=== PATIENT | male | born 1990 | race African-American/Black ===

== ENCOUNTER → 2021-10-29 14:25 | Outpatient (BNVA) | payer OTHER, SELFPAY | PROVIDERS: PCP Internal Medicine; Visit Provider Nurse Practitioner Family | DX: G47.33 Obstructive sleep apnea (adult) (pediatric) (principal); F81.9 Developmental disorder of scholastic skills, unspecified | CPT/HCPCS: 99212 ==

== ENCOUNTER → 2022-01-28 14:26 | Outpatient (BNVA) | payer OTHER, SELFPAY | PROVIDERS: PCP Internal Medicine; Visit Provider Nurse Practitioner Family | DX: G47.33 Obstructive sleep apnea (adult) (pediatric) (principal); F81.9 Developmental disorder of scholastic skills, unspecified | CPT/HCPCS: 99212 ==

== ENCOUNTER → 2022-07-25 13:50 | Outpatient (BNVA) | payer OTHER, SELFPAY | PROVIDERS: PCP Internal Medicine; Visit Provider Nurse Practitioner Family | DX: G47.33 Obstructive sleep apnea (adult) (pediatric) (principal); F81.9 Developmental disorder of scholastic skills, unspecified | CPT/HCPCS: 99212 ==

== ENCOUNTER 2023-06-27 14:57 | Outpatient (AMB) | payer OTHER, SELFPAY ==
--- NOTE | 2023-06-27 15:02 | MHC.OFFVIS ---
Intake Vital Signs 06/27/23 15:07 Height 5 ft 9 in Weight 386 lb BMI 57.0 Intake Visit Reasons: 6m sleep apnea - LVM Intake Note: patient presents for follow up sleep apnea. Patient states Im here for follow up I'm just having issues with the machine, it's not regestering Allergies codeine Allergy (Unknown, Uncoded 06/27/23 15:08) Unknown doxycycline Allergy (Unknown, Uncoded 06/27/23 15:08) Unknown erythromycin Allergy (Unknown, Uncoded 06/27/23 15:08) Unknown phenergan plain Allergy (Unknown, Uncoded 06/27/23 15:08) Unknown promethazine Allergy (Unknown, Uncoded 06/27/23 15:08) Unknown HPI HPI Comments History of Present Illness Details 32-yr-old male presents for f/u visit. Pt denies any significant interval medical changes. He states he is sleeping well with his CPAP, using it nightly > 7-8 hrs. The machine is still making a lot of noise. Pt's CPAP machine is no longer transmitting data. He has a new SD card but it is no longer recording PFSH Surgical History H/O removal of cyst Family History Father No problems noted. Mother Diabetes Social History Alcohol intake: never Patient Tobacco Use Status: Never used Tobacco Review of Systems Const All systems reviewed & are unremarkable except as noted in HPI and below Physical Exam Vital Signs: BMI result Body Mass Index 57.0 Const General: cooperative and no acute distress Orientation/consciousness: patient oriented x3 HEENT Head: Yes normocephalic Resp Effort & Inspection: normal respiratory effort and able to speak in complete sentences Neuro General: patient oriented x3, gait normal and CN's II-XI intact bilaterally Cognition (Neuro): normal cognition Motor exam (neuro): 5/5 motor strength present throughout Psych Appearance: grossly normal Mental Status: mental status grossly normal Speech and movement: Normal speech and movement present Affect: normal affect Attitude: cooperative Assessment & Plan Assessment & Plan (1) Obstructive sleep apnea syndrome, severe: Code(s): G47.33 - Obstructive sleep apnea (adult) (pediatric) (2) Cognitive developmental delay: Code(s): F81.9 - Developmental disorder of scholastic skills, unspecified Plan Continue APAP 12-16 cmH2O nightly > 4 hours, as pt continues to have good clinical effect with use. Clean CPAP machine and supplies routinely. Change CPAP supplies routinely. Continue healthy diet and increased physical activity such as walking. Pt to contact us or respiratory company with any questions or concerns. Coding Level of Care Code Est Pt Level 3 (73186) Diagnoses Obstructive sleep apnea syndrome, severe G47.33 Cognitive developmental delay F81.9
[2023-06-27 15:07] VITALS: BMI 57.0
== END 2023-06-27 15:32 | disposition home or self-care (01) ==
PROVIDERS: Visit Provider Nurse Practitioner Family
DX: G47.33 Obstructive sleep apnea (adult) (pediatric) (principal); F81.9 Developmental disorder of scholastic skills, unspecified
CPT/HCPCS: 99213

== ENCOUNTER → 2023-06-27 14:57 | Outpatient (BNVA) | payer OTHER, SELFPAY | PROVIDERS: Visit Provider Nurse Practitioner Family | DX: G47.33 Obstructive sleep apnea (adult) (pediatric) (principal); F81.9 Developmental disorder of scholastic skills, unspecified | CPT/HCPCS: 99212 ==

== ENCOUNTER 2023-12-19 14:00 | Outpatient (AMB) | payer OTHER, SELFPAY ==
--- NOTE | 2023-12-19 14:01 | MHC.OFFVIS ---
Intake Vital Signs 12/19/23 14:02 Height 5 ft 9 in Weight 381 lb BMI 56.3 Pulse 92 Pulse Source Pulse Oximeter Pulse Oximetry (%) 98 Oxygen Delivery Method Room Air Intake Visit Reasons: 6m sleep apnea-LVM Intake Note: Patient presents for 6 month follow up apnea. Allergies codeine Allergy (Unknown, Uncoded 12/19/23 14:04) Unknown doxycycline Allergy (Unknown, Uncoded 12/19/23 14:04) Unknown erythromycin Allergy (Unknown, Uncoded 12/19/23 14:04) Unknown phenergan plain Allergy (Unknown, Uncoded 12/19/23 14:04) Unknown promethazine Allergy (Unknown, Uncoded 12/19/23 14:04) Unknown HPI HPI Comments History of Present Illness Details 33-yr-old male presents for follow-up visit for LUCIO. He states he is sleeping well with his CPAP, using it most nights > 7-8 hrs. His current machine is making loud noises and no longer transmits compliance data. [facility] Surgical History H/O removal of cyst Family History Father No problems noted. Mother Diabetes Social History Alcohol intake: never Patient Tobacco Use Status: Never used Tobacco Review of Systems Const All systems reviewed & are unremarkable except as noted in HPI and below Physical Exam Vital Signs: Last Vital Signs Pulse 92 12/19/23 14:02 Pulse Ox 98 12/19/23 14:02 Oxygen Delivery Method Room Air 12/19/23 14:02 BMI result Body Mass Index 56.3 Const General: cooperative and no acute distress Orientation/consciousness: patient oriented x3 Resp Effort & Inspection: normal respiratory effort and able to speak in complete sentences Neuro General: patient oriented x3 Cranial nerves: Yes CN's II-XII intact bilaterally Cognition (Neuro): normal cognition Psych Appearance: grossly normal Mental Status: mental status grossly normal Speech and movement: Normal speech and movement present Affect: normal affect Attitude: cooperative Results Reviewed Results Reviewed: PAP compliance report- see HPI Assessment & Plan Assessment & Plan (1) Obstructive sleep apnea syndrome, severe: Code(s): G47.33 - Obstructive sleep apnea (adult) (pediatric) (2) Cognitive developmental delay: Code(s): F81.9 - Developmental disorder of scholastic skills, unspecified Plan Will request new APAP machine w/ remote monitoring capabilities as current machine is making loud noises and no longer transmits compliance data. Continue APAP 10-14 cmH2O nightly > 4 hours, as pt continues to have good clinical effect with use. Clean CPAP machine and supplies routinely. Change CPAP supplies routinely. Continue healthy diet and increased physical activity such as walking. Pt to contact us or respiratory company with any questions or concerns. Coding Level of Care Code Est Pt Level 3 (75781) Diagnoses Obstructive sleep apnea syndrome, severe G47.33 Cognitive developmental delay F81.9
[2023-12-19 14:02] VITALS: PULSE 92; O2SAT 98; BMI 56.3
== END 2023-12-19 14:49 | disposition home or self-care (01) ==
PROVIDERS: PCP Internal Medicine; Visit Provider Nurse Practitioner Family
DX: G47.33 Obstructive sleep apnea (adult) (pediatric) (principal); F81.9 Developmental disorder of scholastic skills, unspecified
CPT/HCPCS: 99213

== ENCOUNTER → 2023-12-19 14:00 | Outpatient (BNVA) | payer OTHER, SELFPAY | PROVIDERS: PCP Internal Medicine; Visit Provider Nurse Practitioner Family | DX: G47.33 Obstructive sleep apnea (adult) (pediatric) (principal); F81.9 Developmental disorder of scholastic skills, unspecified | CPT/HCPCS: 99212 ==

== ENCOUNTER 2024-05-27 11:37 | Outpatient (AMB) | payer OTHER, SELFPAY ==
--- NOTE | 2024-05-27 11:43 | A.OFFVIS_ITS ---
Vital Signs 05/27/24 11:45 Height 5 ft 9 in Weight 374 lb BMI 55.2 Intake Visit Reasons: 6m sleep apnea-CONF Intake Note: Patient presents for 6 month follow up Allergies codeine Allergy (Unknown, Uncoded 05/27/24 11:45) Unknown doxycycline Allergy (Unknown, Uncoded 05/27/24 11:45) Unknown erythromycin Allergy (Unknown, Uncoded 05/27/24 11:45) Unknown phenergan plain Allergy (Unknown, Uncoded 05/27/24 11:45) Unknown promethazine Allergy (Unknown, Uncoded 05/27/24 11:45) Unknown HPI Comments Details: 33-yr-old male presents for follow-up visit of sleep apnea. Pt denies any significant interval medical history changes. Pt reports that he is using his CPAP most nights- states sometimes his machine does not transmit data as the [employer] bars are not available. Pt states he is not eligible for a new CPAP machine until at least [id number]. He is sleeping well w/ CPAP. Current compliance report has pt's name nickolas. [facility]LY [facility] Surgical History H/O removal of cyst Family History Father No problems noted. Mother Diabetes Social History Alcohol intake: never Patient Tobacco Use Status: Never used Tobacco Review of Systems Const All systems reviewed & are unremarkable except as noted in HPI and below Physical Exam Vital Signs: BMI result Body Mass Index 55.2 Const General: no acute distress Orientation/consciousness: patient oriented x3 HEENT Other: Mallampati stage Resp Effort & Inspection: normal respiratory effort and able to speak in complete sentences Auscultation: clear to auscultation bilaterally Neuro General: patient oriented x3 Psych Mental Status: mental status grossly normal Speech and movement: Clear speech present Attitude: cooperative Results Reviewed Results Reviewed: PAP compliance report- see HPI Assessment & Plan Assessment & Plan (1) Obstructive sleep apnea syndrome, severe: Code(s): G47.33 - Obstructive sleep apnea (adult) (pediatric) Category: Medical (2) Cognitive developmental delay: Code(s): F81.9 - Developmental disorder of scholastic skills, unspecified Category: Medical Plan Pt asks that we request the wifi setting on his machine be updated to one w/ stronger bandwidth- we will contact taylor sandhu. Pt's name is not splled correctly on his PAP complince report- will request this be fixed. Continue APAP 10-14 cmH2O nightly > 4 hours, as pt continues to have good clinical effect with use. Clean CPAP machine and supplies routinely. Change CPAP supplies routinely. Continue healthy diet and increased physical activity such as walking. Pt to contact us or respiratory company with any questions or concerns. Coding Level of Care Code Est Pt Level 3 (69550) Diagnoses Obstructive sleep apnea syndrome, severe G47.33 Cognitive developmental delay F81.9
[2024-05-27 11:45] VITALS: BMI 55.2
== END 2024-05-27 12:20 | disposition home or self-care (01) ==
PROVIDERS: PCP Internal Medicine; Visit Provider Nurse Practitioner Family
DX: G47.33 Obstructive sleep apnea (adult) (pediatric) (principal); F81.9 Developmental disorder of scholastic skills, unspecified
CPT/HCPCS: 99213

== ENCOUNTER → 2024-05-27 11:37 | Outpatient (BNVA) | payer OTHER, SELFPAY | PROVIDERS: PCP Internal Medicine; Visit Provider Nurse Practitioner Family | DX: G47.33 Obstructive sleep apnea (adult) (pediatric) (principal); Z99.89 Dependence on other enabling machines and devices | CPT/HCPCS: 99212 ==

== ENCOUNTER 2024-12-16 11:12 | Outpatient (AMB) | payer OTHER, SELFPAY ==
--- NOTE | 2024-12-16 11:27 | MHC.OFFVIS ---
Vital Signs 12/16/24 11:28 Height 5 ft 9 in Weight 380 lb BMI 56.1 BP 140/80 H Blood Pressure Location Lt brachial Position Sitting Pulse 81 Pulse Source Pulse Oximeter Pulse Oximetry (%) 96 Oxygen Delivery Method Room Air Intake Visit Reasons: 7mo F/U Intake Note: Patient presents follow up LUCIO. Compliance in chart [employer] Manager Required: No Accompanied by: Self / Same As Patient Allergies codeine Allergy (Unknown, Uncoded 12/16/24 11:30) Unknown doxycycline Allergy (Unknown, Uncoded 12/16/24 11:30) Unknown erythromycin Allergy (Unknown, Uncoded 12/16/24 11:30) Unknown phenergan plain Allergy (Unknown, Uncoded 12/16/24 11:30) Unknown promethazine Allergy (Unknown, Uncoded 12/16/24 11:30) Unknown Medication List - Last Reconciled 12/16/24 by ASHLEY Sifuentes adalimumab (Humira(CF) Pen) 40 mg subcut QWEEK adalimumab (Humira Pen) 40 mg subcut QWEEK amlodipine 5 mg PO DAILY aspirin (Adult Low Dose Aspirin) 81 mg PO DAILY dulaglutide (Trulicity) 3 mg subcut QWEEK empagliflozin (Jardiance) 10 mg PO QAM fluticasone propionate 50 mcg/actuation (Flonase Allergy Relief) 1 spray intranasal DAILY furosemide (Lasix) 20 mg PO DAILY ibuprofen 400 mg PO .prn lisinopril 30 mg PO DAILY loratadine (Claritin) 10 mg PO DAILY metformin 1,000 mg PO BID mometasone 0.1% 1 appl topical DAILY nystatin 10,000,000 units PO .qd omeprazole 40 mg PO DAILY spironolacton-hydrochlorothiaz 25-25 mg 1 tab PO DAILY spironolactone 25 mg PO DAILY HPI Comments Details: The patient is a 34-year-old male presenting with a follow-up for sleep apnea. - My review of current CPAP compliance data indicates usage at 71% overall, with 70% of nights having usage greater than 4 hours since September 10, 2024. - Average daily usage on days used was 7 hours and 31 minutes. - Residual Apnea-Hypopnea Index recorded at 1.4 per hour. - The current PAP setting is APAP 10 to 14 cm H2O with EPR at 1. The patient noted the machine emitting excessive air noise during use. - The patient reports nasal congestion primarily at night, potentially affecting sleep quality and exacerbating noise perception from the CPAP machine. - The current CPAP machine is eligible for replacement in September 2027, but ongoing maintenance is well-maintained with the regular use of distilled water and cleaning. PAP compliance review: Does patient have sufficient PAP supplies? Yes Does patient clean PAP supplies on a regular basis? Yes Does the patient use distilled water in their PAP machine water reservoir? Yes PAP compliance report reviewed. Compliance report date range: September 10 2024 through December 08 2024 Overall usage: 71 percent Usage greater than 4 hours: 70 percent PAP setting: APAP 10 to 14 cmH2O with EPR 1 Average usage on days used: 7 hours and 31 minutes Average mask leakage: 0 L/min Residual AHI: 1.4 per hour PFSH Surgical History H/O removal of cyst Family History Father No problems noted. Mother Diabetes Social History Alcohol intake: never Patient Tobacco Use Status: Never used Tobacco Physical Exam Vital Signs: Last Vital Signs Pulse 81 12/16/24 11:28 BP 140/80 H 12/16/24 11:28 Pulse Ox 96 12/16/24 11:28 Oxygen Delivery Method Room Air 12/16/24 11:28 BMI result Body Mass Index 56.1 Const General: no acute distress Orientation/consciousness: patient oriented x3 Resp Effort & Inspection: normal respiratory effort and able to speak in complete sentences Auscultation: clear to auscultation bilaterally Neuro General: patient oriented x3 Psych Mental Status: mental status grossly normal Speech and movement: Clear speech present Attitude: cooperative Assessment & Plan Assessment & Plan (1) Obstructive sleep apnea syndrome, severe: Code(s): G47.33 - Obstructive sleep apnea (adult) (pediatric) Category: Medical (2) Cognitive developmental delay: Code(s): F81.9 - Developmental disorder of scholastic skills, unspecified Category: Medical (3) Nasal congestion: Code(s): R09.81 - Nasal congestion Category: Medical Plan Discussion Notes During this session, I reviewed the patient's CPAP compliance with him, noting an improvement and consistency in use. The patient?s compliance data are commendable, meeting compliance and efficacy parameters. However, we discussed his concerns regarding the noise emitted by the CPAP machine, potentially affecting his sleep quality. He identified nasal congestion as an additional issue, addressed with regular use of Flonase and systemic allergy management before retiring to bed. The discussion around future machine replacement timelines was clarified, with a recommendation for reevaluation in September 2027.Advised by seem to trial Azelastine 137 mcg nasal spray, 2 sprays into each nostril daily at bedtime. Provided guidance on nasal spray application methods for optimizing treatment outcomes and alleviating congestion symptoms. My suggestions included potential modification options for EPR settings to enhance comfort. We reviewed tracking metrics for continued management, and I detailed resources for optimally maintaining equipment function. Patient was informed and verbally consented to the use of an ambient scribe for clinic note documentation during this visit. Plan - Continue APAP 10-14 cmH2O nightly > 4 hours, as pt continues to have good clinical effect with use. - However adjusted EPR from 1 to 3 (via [employer] portal) in hopes this improves PAP tolerance in decreases - Trial Azelastine 137 mcg nasal spray, 2 sprays into each nostril daily at bedtime - Clean and change PAP supplies routinely, including filters, masks, tubing, and water reservoir. - Use distilled water in PAP water reservoir. - Continue healthy diet and increased physical activity such as walking. - Pt to contact us or respiratory company with any questions or concerns. Medications: New azelastine administer into each nostril x's 2 2 sprays intranasal BEDTIME 30 mL 6RF 30 days Coding Level of Care Code Est Pt Level 4 (88775) Diagnoses Obstructive sleep apnea syndrome, severe G47.33 Cognitive developmental delay F81.9 Nasal congestion R09.81
[2024-12-16 11:28] VITALS: BP 140/80; PULSE 81; O2SAT 96; BMI 56.1
--- OUTSIDE RECORDS SUMMARY | 2024-12-16 12:46 | XMS_ITS | Clinical Summary ---
Author Organization [facility] Address [address] [facility] [address] [place] [address] Phone Care Team Providers Care Pediatric Psychologist Name Role Phone Timothy Santiago Primary Care Provider [phone] Allergies Active Allergy Reactions Criticality Noted Date Comments Codeine Other (see comments) 09/19/2016 Reaction not mentioned Doxycycline Nausea Only 09/19/2016 Reaction not mentioned Erythromycin 09/19/2016 Reaction not mentioned Promethazine 09/21/2011 Reaction not mentioned Medications aspirin (ST GOPI) 81 MG EC tablet Take 1 tablet by mouth 1 (one) time each day Active omeprazole (PriLOSEC) [address] capsule TAKE 1 CAP BY MOUTH DAILY. APPOINTMENT DUE FOR FURTHER REFILLS 1 Active loratadine (CLARITIN) 10 MG tablet Take 10 mg by mouth 1 (one) time each day Active nystatin (MYCOSTATIN) powder Apply topically 4 (four) times a day prn Active ibuprofen (ADVIL,MOTRIN) 600 MG tablet Take 600 mg by mouth every 6 (six) hours if needed for mild pain Active Humira Pen 40 MG/0.4ML Pen-injector Kit 2 Active fluticasone (FLONASE) 50 MCG/ACT nasal spray Administer 1 spray into each nostril 1 (one) time each day Active insulin glargine (LANTUS) 100 UNIT/ML injection Inject 50 Units under the skin every night 45 am 45 pm Active lisinopril 40 MG tablet Take 1 tablet (40 mg total) by mouth 1 (one) time each day 30 tablet 3 Active spironolactone- hydroCHLOROthia zide (ALDACTAZIDE) 25-25 MG per tablet Take 1 tablet by mouth every morning 90 tablet 5 4 Active atorvastatin (LIPITOR) 20 MG tablet Take 20 mg by mouth 1 (one) time each day Active Synjardy 12.5-1000 MG tablet TAKE 1 TABLET BY MOUTH TWICE A DAY WITH BREAKFAST AND DINNER Active Mounjaro 10 MG/0.5ML solution pen-injector INJECT 10 MG INTO THE SKIN EVERY 7 DAYS Active amLODIPine (NORVASC) 5 MG tablet TAKE 1 TABLET (5 MG TOTAL) BY MOUTH IN THE MORNING AND IN THE EVENING 180 tablet 3 4 Active Active Problems Problem Noted Date Diagnosed Date Abscess of buttock 11/24/2021 Uncontrolled type 2 diabetes mellitus 11/22/2021 Overview (07/09/2024): Replacing diagnoses that were inactivated after the 07/09/24 Regulatory Import Type 2 diabetes mellitus without complication Edema 12/24/2020 Essential hypertension 08/10/2012 Resolved Problems Problem Noted Date Diagnosed Date Resolved Date Obesity 12/24/2020 04/22/2021 Obstructive sleep apnea 07/21/202004/08 Overview (04/22/2021): [facility] Split Night Polysomnogram Date 07/09/2020. Wt 420#; BMI 62. Without PAP:AHI 155, Central apneas 0; Obstructive apneas 7; Mixed apneas 0; hypopneas 37; average oxygen saturation 89% (lowest 83%). With PAP: CPAP @ 12; AHI 1.1 and oxygen saturation averaged 92% with oxygen harris of 89%. - Obstructive Sleep Apnea - severe; mostly hypopneas; without sleep related hypoventilation by 2019 split night polysomnogram. [facility] Split Night Polysomnogram Date 07/09/2020. Wt 420#; BMI 62. Without PAP:AHI 155, Central apneas 0; Obstructive apneas 7; Mixed apneas 0; hypopneas 37; average oxygen saturation 89% (lowest 83%). With PAP: CPAP @ 12; AHI 1.1 and oxygen saturation averaged 92% with oxygen harris of 89%. - Obstructive Sleep Apnea - severe; mostly hypopneas; without sleep related hypoventilation by 2019 split night polysomnogram. Gastroesophageal reflux disease 08/01/2019 04/22/2021 Talipes planus 06/20/2017 04/22/2021 Venous stasis syndrome 06/20/201704/22 Peripheral edema 11/14/2016 04/22/2021 Asthma 09/19/2016 04/22/2021 Body mass index 40+ - severely obese 09/19/2016 04/22/2021 Hypertensive disorder 09/19/20162020 Hypertriglyceridemia 09/19/2016 021 Intellectual disability 09/19/201604/08 Allergic rhinitis 05/14/2013 04/22/2021 Immunizations Name Administration Dates Next Due DTaP 11/13/1994, 2,05/03/1991,02/15,1990 DTaP / HiB / IPV 01/20/1992, 1,02/15/1991,12/08 Hep B, Adolescent or Pediatric 07/26/1996,1995,10/20/1995 IPV 11/13/1994, 1,02/15/1991,12/18 Influenza, MDCK, PF, Quadrivalent 06/25/2021 Influenza, MDCK, Quadrivalen t, with preservative 09/16/2020,07/28/2017,07/12/2016 Influenza, Quadrivalent, Pre servative Free 09/16/2020 MMR 01/19/2009 Meningococcal MCV4P 01/19/2010 Moderna SARS-COV-2 09/09/2021,12/16/2020, 021 PPD Test 11/23/1994 Pneumococcal Polysaccharide 07/28/2017 Tdap 01/19/2010 Varicella 01/25/2010,12/30/1999 Family History Medical History Relation Comments Diabetes Father Hypertension Father Diabetes Mother Relation Status Comments Father Mother Social History Tobacco Use Types Packs/Day Years Used Date Smoking Tobacco: Never Smokeless Tobacco: Never Tobacco Cessation:Counseling Given: Not Answered Alcohol Use Standard Drinks/Week Comments No 0 (1 standard drink = 0.6 oz pur e alcohol) Sex and Gender Information Value Date Recorded Sex Assigned at Not on file Legal Sex Male 5:22 PM EST Gender Identity Not on file Sexual Orientation Not on file Last Filed Vital Signs Vital Sign Reading Time Taken Comments Blood Pressure 126/82 01/10/2024 1:08 PM EDT Pulse 72 01/10/2024 1:08 PM EDT Temperature - - Respiratory Rate - - Oxygen Saturation 98% 01/10/2024 1:08 PM EDT Inhaled Oxygen Concentration - - Weight 171 kg (377 lb 12.8 oz) 01/10/2024 1:08 P M EDT Height 175.3 cm (5' 9 ) 06/23/2021 3:22 PM EDT Body Mass Index 55.79 06/23/2021 3:22 PM EDT Plan of Treatment Upcoming Encounters Date Type Department Care Team (Late st Contact Info) Description 01/08/2025 2:30 PM EDT Office Visit [facility] [address] [address] Roberto Wood MD [address] [address] Health Maintenance Due Date Last Done Comments Pneumococcal Vaccine: Pediat rics (0 to 5 Years) and At-Risk Patients (6 to 64 Years) (2 of 2 - PCV) 07/28/2018 07/28/2017 Diabetes: Ophthalmology Exam 06/23/2021 Diabetes: Pedal Pulse Checked 06/23/2021 Diabetes: Sensory Foot Exam 06/23/2021 Diabetes: Visual Foot Exam 06/23/2021 Diabetes: Hemoglobin A1C 02/06/2024 024, 05/08/2023, 02/01/2023, Additional history exists Influenza Vaccine (#1) 2024 2, 06/27/2022, 06/25/2021, Additional history exists Hepatitis B Vaccine Completed 07/26/1996, 11/27/1995, 10/20/1995 Procedures Procedure Name Priority Date/Time Associated Diagnosis Comments EXT RESULT ENTRY Routine 11/22/2021 from Last 3 Months or Most Recently Relevant to Health Maintenance Results * (ABNORMAL) EXT RESULT ENTRY (11/22/2021) WBC 9.8 3.3 - 10.0 10*3/ML Red Blood Cell Count 5.1 Hemoglobin 15.1 13.5 - 17.5 Hematocrit 45.0 41.0 - 53.0 Platelets 320 150 - 399 10*3/UL MCV 88.8 82.0 - 108.0 Sodium 136(A) 137 - 147 Potassium 4.3 3.4 - 5.5 Chloride 103.0 99.0 - 108.0 Bicarbonate (CO2) 27 22 - 30 mmol/L Anion Gap 6 <=30 MMOL/L BUN 8 4 - 21 mg/dL Creatinine 0.73 0.60 - 1.30 mg/dL Albumin 3.6 3.5 - 5.0 g/dL Calcium 9 8.7 - 10.7 mg/dL Hemoglobin A1C 9.1(A) 4.0 - 6.0 11/22/2021 Historical Provider LAB BLOOD ORDERABLES Martita l Result from Last 3 Months or Most Recently Relevant to Health Maintenance Insurance MEDICAID MEDICAID Care Teams Pediatric Psychologist Relationship Specialty Start Date End Date Jack Timothy [address] [place] [address] PCP - General 10/19/20
--- OUTSIDE RECORDS SUMMARY | 2024-12-16 12:46 | XMS_ITS | Encounter Summary ---
Author Organization [facility] Address [address] [facility] [address] [place] [address] Phone Care Team Providers Care Microsoft Architect Name Role Phone Timothy Santiago Primary Care Provider [phone] Encounter Details Date Type Department Care Team (Late Contact Info) Description 05/23/2022 Documentation Only [facility] [address] [facility] [address] [place] [address] Roberto Wood MD [address] [address] Social History Tobacco Use Types Packs/Day Years Used Date Smoking Tobacco: Never Smokeless Tobacco: Never Alcohol Use Standard Drinks/Week Comments No 0 (1 standard drink = 0.6 oz pur e alcohol) Sex and Gender Information Value Date Recorded Sex Assigned at Not on file Legal Sex Male 5:22 PM EST Gender Identity Not on file Sexual Orientation Not on file documented as of this encounter Plan of Treatment Upcoming Encounters Date Type Department Care Team (Late Contact Info) Description 01/08/2025 2:30 PM EDT [facility] [address] [address] Roberto Wood MD [address] [address] documented as of this encounter Visit Diagnoses Not on filedocumented in this encounter Care Teams Microsoft Architect Relationship Specialty Start Date End Date Timothy Santiago [address] [place] [address] PCP - General 10/19/20 documented as of this encounter
--- OUTSIDE RECORDS SUMMARY | 2024-12-16 12:47 | XMS_ITS | Encounter Summary ---
Author Organization [facility] Address [address] [place] [address] Care Team Providers Care Practicing Md Anesthesiologist Name Role Phone Timothy Hernandez MD Primary Care Provider [phone] Reason for Referral * Imaging (Routine) - Closed Specialty Diagnoses / Procedures Referred By Rocael kitchen Referred To Contact Radiology Diagnoses Cyst of spleen Procedures CT Abdomen Pelvis w Contrast Timothy Hernandez MD [address] [place] [address] Phone: tel: fax: CT Scan - [address] Phone: tel: fax: Referral ID Status Reason Start Date Expiration Date Visits Re quested Visits Authorized [id number] Closed 10/30/2024 12/29/2024 1 1 Reason for Visit * Imaging (Routine) - Closed Specialty Diagnoses / Procedures Referred By Contmichael kitchen Referred To Contact Radiology Diagnoses Cyst of spleen Procedures CT Abdomen Pelvis w Contrast Timothy Hernandez MD [address] [place] [address] Phone: tel: fax: CT Scan - Counselor [address] [place] [address] Phone: tel: fax: Referral ID Status Reason Start Date Expiration Date Visits Re quested Visits Authorized [id number] Closed 10/30/2024 12/29/2024 1 1 Encounter Details Date Type Department Care Team (Latest Contact Info) Description 11/25/2024 10:57 AM EST - 11/25/2024 11:59 PM EST Hospital Encounter CT Scan - [place] [address] [place] [address] Cyst of spleen Discharge Disposition: Home or Self Care Social History Tobacco Use Types Packs/Day Years Used Date Smoking Tobacco: Never Smokeless Tobacco: Never Alcohol Use Standard Drinks/Week Comments No 0 (1 standard drink = 0.6 oz pur e alcohol) Sex and Gender Information Value Date Recorded Sex Assigned at Not on file Legal Sex Male 3:27 PM EST Gender Identity Not on file Sexual Orientation Not on file documented as of this encounter Medications at Time of Discharge adalimumab (Humira,CF, Pen) 40 mg/0.4 mL pen Inject 40 mg as directed twice a week. 10/14/2022 amLODIPine (NORVASC) 5 mg tablet Take 1 Tablet by mouth 2 times daily. 07/15/2024 atorvastatin (LIPITOR) 80 mg tablet Take 1 tablet (80 mg total) by mouth 1 (one) time each day. 90 tablet 09/04/2024 blood sugar diagnostic (FreeStyle Lite Strips) test strip USE DIRECTED TO CHECK FASTING GLUCOSE EVERY AM AND AFTER DINNER 03/18/2024 blood-glucose meter kit Use as directed to check fasting glucose q AM and after dinner 06/13/2023 blood-glucose meter,continuous misc 1 Device by Does not apply route See Admin Instructions. Use daily with dexcom g 7 sensors 06/24/2024 chlorhexidine (Hibiclens) 4 % external liquid LATHER ON AFFECTED AREAS OF SKIN IN THE SHOWER DAILY. LET SIT ON SKIN FOR 2 -3 MINUTES THEN WASH OFF 08/30/2021 clindamycin phosphate 1 % gel, once daily Apply a thin layer to affected areas twice daily 08/30/2021 clotrimazole (LOTRIMIN) 1 % cream Twice daily rash for 1 week 06/24/2024 empagliflozin-metf ormin (Synjardy) 12.5-500 mg tablet Take 1 Tablet by mouth 2 times daily. 06/03/2024 finasteride (PROSCAR) 5 mg tablet Take 0.5 mg by mouth daily. 01/30/2023 fluticasone propionate (FLONASE) 50 mcg/actuation nasal spray INSTILL 1 SPRAY INTO EACH NOSTRIL ONCE DAILY 48 mL 1 09/19/2024 FREESTYLE LANCETS MISC USE DIRECTED TO CHECK FASTING GLUCOSE EVERY AM AND AFTER DINNER 03/18/2024 glucose sensor,implant-dex amet device 1 Device by Does not apply route See Admin Instructions. Change sensor every 10 days 06/24/2024 insulin glargine U-300 conc (Toujeo Max U-300 SoloStar) 300 unit/mL (3 mL) CONCENTRATED injection pen Inject 54 Units into the skin 2 times daily. 06/24/2024 lisinopril (PRINIVIL,ZESTRIL) 40 mg tablet Take 1 Tablet by mouth every morning. 07/15/2024 loratadine (CLARITIN) 10 mg tablet TAKE 1 TABLET BY MOUTH EVERY DAY 90 tablet 1 09/03/2024 nystatin (MYCOSTATIN) 100,000 unit/gram powder Apply to affected areas BID 01/03/2023 omeprazole (PriLOSEC) [address] capsule Take 1 Capsule by mouth every morning (before breakfast). 07/15/2024 pen needle, diabetic 32 gauge x 5/32 needle Use one daily with insulin 08/08/2023 spironolactone-hyd roCHLOROthiazide (ALDACTAZIDE) 25-25 mg per tablet Take 1 Tablet by mouth every morning. 07/15/2024 documented as of this encounter Discharge Disposition Disposition Code Departure Means Destination Home or Self Care documented in this encounter Plan of Treatment Upcoming Encounters Date Type Department Care Team (Late st Contact Info) Description 12/30/2024 3:45 PM EDT Consult Orthopedic Surgery - [place] [address] [phone] Sadiq Lepe, DPM [address] [address] 01/07/2025 4:30 PM EDT Office Visit Endocrinology - [place] [address] [place], [place] [phone] Amy Bentley PA [address] [place] [address] 01/13/2025 1:00 PM EDT Office Visit Gastroenterology - [address] [facility] [address] [place] [phone] Dianne Engel NP [address] [place] [address] 02/17/2025 2:00 PM EDT Office Visit Internal Medicine - [facility] [address] [place] [address] Timothy Hernandez MD [address] [place] [address] documented as of this encounter Procedures Procedure Name Priority Date/Time Associated Diagnosis Comments CT ABDOMEN PELVIS W CONTRAST Routine 11/25/2024 11:20 AM EST Cyst of spleen documented in this encounter Results * CT Abdomen Pelvis w Contrast (11/25/2024 11:20 AM EST) Anatomical Region Laterality Modality Body Computed Tomogra phy 11/25/2024 11:4 5 AM EST Impressions 11/25/2024 12:04 PM EST Similar size posterior splenic hypodense lesion, however, with features that suggest non- cystic nature. ??An MRI with intravenous contrast is recommended for further evaluation. -------- FINAL REPORT -------- Dictated By: Reinaldo Lloyd Dictated Date: 11/25/2024 11:45 ET Assigned Physician: Reinaldo Lloyd Reviewed and Electronically Signed By: Reinaldo Lloyd Signed Date: 11/25/2024 12:04 ET Workstation ID: [id number] Transcribed By: Self Edit Transcribed Date: 11/25/2024 11:45 ET Narrative 11/25/2024 12:[address] ABDOMEN PELVIS W CONTRAST TECHNIQUE: Multidetector-row CT of the abdomen and pelvis was performed after administration of intravenous contrast (100 cc of Isovue-370) using tailored dose modulation techniques. Images were reconstructed in the axial, coronal, and sagittal planes. COMPARISON: Abdomen/pelvis CT on June 17, 2024 describes 1.7 cm hypodensity within the posterior spleen . ??Abdominal ultrasound on July 15, 2024 was unable to identify sonographic correlate for the splenic finding. 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 ??No pleural effusion. Liver: Hepatomegaly measuring 22 cm. ??Diffuse decreased attenuation of the liver parenchyma, compatible with hepatic steatosis. ??No focal lesions. Biliary: Normal gallbladder. ??No biliary ductal dilatation. Spleen: No splenomegaly. ??Redemonstration of 1.9 cm hypodense lesion in the posterior aspect of the spleen (2:49), that shows apparent lobulated margins and calcifications inferiorly, which were not well appreciated on the previous study (prior re-measurements of 1.8 cm). Pancreas: Unremarkable. Adrenal Glands: No nodules. Kidneys/Ureters: No focal lesions or hydronephrosis. Bowel: Orally administered contrast has reached the ascending colon. ??No bowel distention. ??Normal appendix. Peritoneum/Retroperitoneum: No intra-abdominal free air or free fluid. Lymph Nodes: No lymphadenopathy. Pelvic Organs/Bladder: Under distended urinary bladder appears unremarkable. Vessels: No abdominal aortic aneurysm. Bones/Soft Tissues: No acute suspicious bone lesions. ??No suspicious abnormalities in the overlying soft tissues. Procedure Note Reinaldo Lloyd MD - 11/25/2024 CT ABDOMEN PELVIS W CONTRAST TECHNIQUE: Multidetector-row CT of the abdomen and pelvis was performedafter administration of intravenous contrast (100 cc of Isovue-370) usingtailored dose modulation techniques. Images were reconstructed in theaxial, coronal, and sagittal planes. COMPARISON: Abdomen/pelvis CT on June 17, 2024 describes 1.7 cmhypodensity within the posterior spleen . Abdominal ultrasound on 2023 was unable to identify sonographic correlate for the splenicfinding. 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 No pleural effusion. Liver: Hepatomegaly measuring 22 cm. Diffuse decreased attenuation of theliver parenchyma, compatible with hepatic steatosis. No focal lesions. Biliary: Normal gallbladder. No biliary ductal dilatation. Spleen: No splenomegaly. Redemonstration of 1.9 cm hypodense lesion inthe posterior aspect of the spleen (2:49), that shows apparent lobulatedmargins and calcifications inferiorly, which were not well appreciated onthe previous study (prior re-measurements of 1.8 cm). Pancreas: Unremarkable. Adrenal Glands: No nodules. Kidneys/Ureters: No focal lesions or hydronephrosis. Bowel: Orally administered contrast has reached the ascending colon. Nobowel distention. Normal appendix. Peritoneum/Retroperitoneum: No intra-abdominal free air or free fluid. Lymph Nodes: No lymphadenopathy. Pelvic Organs/Bladder: Under distended urinary bladder appearsunremarkable. Vessels: No abdominal aortic aneurysm. Bones/Soft Tissues: No acute suspicious bone lesions. No suspiciousabnormalities in the overlying soft tissues. IMPRESSION: Similar size posterior splenic hypodense lesion, however, with featuresthat suggest non- cystic nature. An MRI with intravenous contrast isrecommended for further evaluation. -------- FINAL REPORT -------- Dictated By: Reinaldo Lloyd Dictated Date: 11/25/2024 11:45 ET Assigned Physician: Reinaldo Lloyd Reviewed and Electronically Signed By: Reinaldo Lloyd Signed Date: 11/25/2024 12:04 ET Workstation ID: [id number] Transcribed By: Self Edit Transcribed Date: 11/25/2024 11:45 ET us Timothy Hernandez MD IMG CT PROCEDURES Final R esult documented in this encounter Visit Diagnoses Diagnosis Cyst of spleen documented in this encounter Administered Medications Inactive Administered Medications - up to 3 most recent administrations Medication Order MAR Action Action Date Dose Rate Site iopamidoL (ISOVUE-370) 370 mg iodine /mL (76 %) injection 100 mL 100 mL, intravenous, Once in imaging, Starting on 11/25/24 at 1119, For 1 dose Given 11/25/2024 11:20 AM EST 100 mL sodium chloride 0.9 % flush 10 mL 10 mL, intravenous, Once, On 11/25/24 at 1145, For 1 dose Given 11/25/2024 11:20 AM EST 10 mL documented in this encounter Care Teams Practicing Md Anesthesiologist Relationship Specialty Start Date End Date Timothy Hernandez MD [address] [place] [id number] PCP - General Internal Medicine 09/06/16 documented as of this encounter
--- OUTSIDE RECORDS SUMMARY | 2024-12-16 12:47 | XMS_ITS | Encounter Summary ---
Author Organization [facility] Address [address] [place] [address] Care Team Providers Care Supervisor Sewing Department Name Role Phone Timohty Hernandez MD Primary Care Provider [phone] Encounter Details Date Type Department Care Team (Latest Contact Info) Description 12/02/2024 1:02 PM EST - 12/02/2024 11:59 PM EST Hospital Encounter [facility] Xray [address] [place] [address] Left lower quadrant abdominal pain Discharge Disposition: Home or Self Care Social [...] 07/15/2024 pen needle, diabetic 32 gauge x /32 needle Use one daily with insulin 08/08/2023 [...] 3:45 PM EDT Consult Orthopedic Surgery - [place] 250 175 [facility] 250 [place] [address] Sadiq Lepe, DPM 175 [facility] [address] [place] [address] 01/07/2025 4:30 PM EDT Office Visit Endocrinology - [place] [address] [place] [address] Amy Bentley PA [address] [place] [address] 01/13/2025 1:00 PM EDT Office Visit Gastroenterology - 299 [facility] 299 [facility] [address] [place] [address] Dianne Engel NP [address] [address] 02/17/2025 2:00 PM EDT Office Visit Internal Medicine - [address] [phone] Timothy Hernandez MD [address] [place] [address] documented as of this encounter Procedures Procedure Name Priority Date/Time Associated Diagnosis Comments XR ABDOMEN 1 VIEW Routine 12/02/2024 1:1 6 PM EST Left lower quadrant abdominal pain documented in this encounter Results * XR Abdomen 1 View (12/02/2024 1:16 PM EST) Anatomical Region Laterality Modality Body Radiographic Tika ging 12/05/2024 11:4 3 AM EST Impressions 12/05/2024 11:45 AM EST No evidence of obstruction. -------- FINAL REPORT -------- Dictated By: Erlinda Isbell Dictated Date: 12/05/2024 11:43 ET Assigned Physician: Erlinda Isbell Reviewed and Electronically Signed By: Erlinda Isbell Signed Date: 12/05/2024 11:45 ET Workstation ID: [id number] Transcribed By: Self Edit Transcribed Date: 12/05/2024 11:43 ET Narrative 12/05/2024 11:45 AM EST INDICATION: Chronic abdominal pain FINDINGS: Single view of the abdomen was obtained. Pelvic CT from July 09, 2021 reviewed. There is a nonobstructive bowel gas pattern with a paucity of gas throughout the abdomen. There are no air-filled, dilated loops of small bowel. Small amount of air and formed fecal material noted throughout the colon. 6 mm calcification in the right side of the pelvis is consistent with a phlebolith as noted on prior pelvic CT. Bony structures are normal for the patient's age. Procedure Note Erlinda Isbell MD - 12/05/2024 INDICATION: Chronic abdominal pain FINDINGS: Single view of the abdomen was obtained. Pelvic CT from 2020 reviewed. There is a nonobstructive bowel gas pattern with a paucity of gasthroughout the abdomen. There are no air-filled, dilated loops of smallbowel. Small amount of air and formed fecal material noted throughout thecolon. 6 mm calcification in the right side of the pelvis is consistent with aphlebolith as noted on prior pelvic CT. Bony structures are normal for the patient's age. IMPRESSION: No evidence of obstruction. -------- FINAL REPORT -------- Dictated By: Erlinda Isbell Dictated Date: 12/05/2024 11:43 ET Assigned Physician: Erlinda Isbell Reviewed and Electronically Signed By: Erlinda Isbell Signed Date: 12/05/2024 11:45 ET Workstation ID: [id number] Transcribed By: Self Edit Transcribed Date: 12/05/2024 11:43 ET Dianne Engel NP IMG XR PROCEDURES Final Resul t documented in this encounter Visit Diagnoses Diagnosis Left lower quadrant abdominal pain documented in this encounter Care Teams Supervisor Sewing Department Relationship Specialty Start Date End Date Timothy Hernandez MD [address] [place] [address] PCP - General Internal Medicine 09/06/16 documented as of this encounter
--- OUTSIDE RECORDS SUMMARY | 2024-12-16 12:47 | XMS_ITS | Encounter Summary ---
Author Organization [facility] Address [address] [facility] [address] [place] [address] Phone Care Team Providers Care Box Stacker Name Role Phone Timothy Santiago Primary Care Provider Encounter Details Date Type Department Care Team (Late Contact Info) Description 05/23/2022 Documentation Only [facility] [address] [place] [address] Roberto Wood MD [address] [address] Social History Tobacco Use Types [...] Visit [facility] [address] [address] Roberto Wood MD [address] [address] documented as of this encounter Visit Diagnoses Not on filedocumented in this encounter Care Teams Box Stacker Relationship Specialty Start Date End Date Timothy Santiago [address] [place] [address] PCP - General 10/19/20 documented as of this encounter
--- OUTSIDE RECORDS SUMMARY | 2024-12-16 12:47 | XMS_ITS | Clinical Summary ---
Author Organization [place] [address] James zabala [facility] Building Address [address] [place] [address] Phone Care Team Providers Care Technical Project Manager Name Role Phone Timothy Hernandez MD Primary Care Provider [phone] Allergies Active Allergy Reactions Criticality Noted Date Comments Codeine 09/19/2016 Reaction not mentioned Doxycycline 09/19/2016 Reaction not mentioned Erythromycin 09/19/2016 Reaction not mentioned Phenergan Plain 09/19/2016 Reaction not mentioned Promethazine 09/21/2011 Medications loratadine (CLARITIN) 10 mg tablet TAKE 1 TABLET BY MOUTH EVERY DAY 90 tablet 1 4 Active atorvastatin (LIPITOR) 80 mg tablet Take 1 tablet (80 mg total) by mouth 1 (one) time each day. 90 tablet 4 Active amLODIPine (NORVASC) 5 mg tablet Take 1 Tablet by mouth 2 times daily. 4 Active adalimumab (Humira,CF, Pen) 40 mg/0.4 mL pen Inject 40 mg as directed twice a week. 3 Active chlorhexidine (Hibiclens) 4 % external liquid LATHER ON AFFECTED AREAS OF SKIN IN THE SHOWER DAILY. LET SIT ON SKIN FOR 2 -3 MINUTES THEN WASH OFF 1 Active clindamycin phosphate 1 % gel, once daily Apply a thin layer to affected areas twice daily 1 Active clotrimazole (LOTRIMIN) 1 % cream Twice daily rash for 1 week 4 Active empagliflozin-met formin (Synjardy) 12.5-500 mg tablet Take 1 Tablet by mouth 2 times daily. 4 Active lisinopril (PRINIVIL,ZESTRIL ) 40 mg tablet Take 1 Tablet by mouth every morning. 4 Active nystatin (MYCOSTATIN) 100,000 unit/gram powder Apply to affected areas BID 3 Active omeprazole (PriLOSEC) [address] capsule Take 1 Capsule by mouth every morning (before breakfast). 4 Active spironolactone-hy droCHLOROthiazide (ALDACTAZIDE) 25-25 mg per tablet Take 1 Tablet by mouth every morning. 4 Active finasteride (PROSCAR) 5 mg tablet Take 0.5 mg by mouth daily. 3 Active blood-glucose meter,continuous misc 1 Device by Does not apply route See Admin Instructions. Use daily with dexcom g 7 sensors 4 Active glucose sensor,implant-de xamet device 1 Device by Does not apply route See Admin Instructions. Change sensor every 10 days 4 Active FREESTYLE LANCETS MISC USE DIRECTED TO CHECK FASTING GLUCOSE EVERY AM AND AFTER DINNER 4 Active blood sugar diagnostic (FreeStyle Lite Strips) test strip USE DIRECTED TO CHECK FASTING GLUCOSE EVERY AM AND AFTER DINNER 4 Active pen needle, diabetic 32 gauge x 5/32 needle Use one daily with insulin 3 Active blood-glucose meter kit Use as directed to check fasting glucose q AM and after dinner 3 Active insulin glargine U-300 conc (Toujeo Max U-300 SoloStar) 300 unit/mL (3 mL) CONCENTRATED injection pen Inject 54 Units into the skin 2 times daily. 4 Active fluticasone propionate (FLONASE) 50 mcg/actuation nasal spray INSTILL 1 SPRAY INTO EACH NOSTRIL ONCE DAILY 48 mL 1 4 Active Active Problems Problem Noted Date Diagnosed Date Mental disability 11/02/2022 Abscess, gluteal cleft 11/24/2021 Obstructive sleep apnea 07/21/2020 Overview (09/10/2024): [facility] Split Night Polysomnogram Date 07/09/2020. Wt 420#; [...] split night polysomnogram. Gastroesophageal reflux disease 08/01/2019 Bilateral pes planus 06/20/2017 Venous stasis syndrome 06/20/2017 Peripheral edema 11/14/2016 Asthma 09/19/2016 HTN (hypertension) 09/19/2016 Hypertriglyceridemia 09/19/2016 Allergic rhinitis 05/14/2013 Encounters Date Type Department Care Team Description 12/02/2024 1:02 PM EST - 12/02/2024 11:59 PM EST Hospital Encounter [facility] Xray [address] [place] [phone] Left lower quadrant abdominal pain Discharge Disposition: Home or Self Care 12/02/2024 12:40 PM EST Office Visit Gastroenterology - [address] [facility] 299 [facility] [address] [place] [phone] Dianne Engel, MARGOT Left lower quadrant abdominal pain (Primary Dx); Abnormal CT of the abdomen 11/26/2024 [facility] [address] Timothy Hernandez MD Results 11/25/2024 10:57 AM EST - 11/25/2024 11:59 PM EST Hospital Encounter CT Scan - [address] [phone] Cyst of spleen Discharge Disposition: Home or Self Care 10/14/2024 [facility] [address] [place] [phone] Timothy Hernandez MD Prior Authorization 10/03/2024 Telephone Internal Medicine - [address] [phone] Miriam Garcia [place] 09/30/2024 Telephone Internal Medicine - [facility] [address] [facility] [place] [address] Timothy Hernandez MD Referral (Internal gastro ) 09/30/2024 Telephone Internal Medicine - [facility] [address] [facility] [place] [address] Timothy Hernandez MD Referral (Internal Podiatry ) from Last 3 Months Immunizations Name Administration Dates Next Due DTaP (Infanrix) 6wks to less than 7yo ,04/27/1992,05/03/1991,02/15,1990 [id number]-SPU-OKC (Pentacel) 2mo to less than 5yo 01/20/1992,05/03/1991,02/15/1991,12/08 Hepatitis B Pediatric (Enger ix B; Recombivax HB) to less than 20 yo 07/26/1996,11/27/1995,10/20/1995 IPV Inactivated polio (Ipol) 6wks and older 11/13/1994,05/03/1991,02/15/1991,12/18 Influenza Quadravalent, MDCK , 0.5ml, preservative free (Flucelvax) 6mo and older 06/27/2022,06/25/2021 Influenza Quadravalent, MDCK , 0.5ml, with preservative (Flucelvax) 6mo and older 09/16/2020,07/28/2017,07/12/2016 Influenza trivalent, 0.5mL, preservative free (Fluarix; FluLaval; Fluzone) ages 6mo and older (Afluria) 3 years and older 07/15/2024 MMR, measles mumps and rubel la Live (Priorix; M-M-R II) 12mo and older 01/19/2009 Meningococcal MCV4P 01/19/2010 Moderna SARS-CoV-2 COVID-19, mRNA, LNP-S, preservative free 09/09/2021,12/16/2020,11/18/2020 Pfizer SARS-CoV-2 COVID-19, mRNA, LNP-S, preservative free 01/03/2023 Pneumococcal polysaccharide 23 valent (Pneumovax 23) 2yo and older 07/28/2017 Td Tetanus diptheria (Tdvax) 7yo and older 11/22/2021 Tdap Tetanus diptheria acell ular pertussis (Boostrix; Adacel) 7yo and older 01/19/2010 Varicella live (Varivax) 12m o and older 01/25/2010,12/30/1999 Surgical History Surgery Date Site/Laterality Comments OTHER SURGICAL HISTORY 07/2021 Right PROCEDURE: ---- OTHER ----; COMMENT: abscess on testicles Medical History Medical History Date Comments HTN (hypertension) 09/19/2016 DX:HTN (hyper tension) Asthma 09/19/2016 DX:Asthma Mental retardation 09/19/2016 DX:Mental ret ardation Hypertriglyceridemia 09/19/2016 DX:Hypertri glyceridemia Bilateral pes planus 06/20/2017 DX:Bilatera l pes planus Venous stasis syndrome 06/20/2017 DX:Venous stasis syndrome Peripheral edema 11/14/2016 DX:Peripheral e laina Diabetes mellitus type 2, un complicated (CMS/HCC) 03/31/2021 DX:Diabetes mellitus type 2, uncomplicated ([facility]) Family History Medical History Relation Name Comments No Known Problems Father Diabetes Mother Relation Name Status Comments Father Alive Mother Alive Social History Tobacco Use Types Packs/Day Years Used Date Smoking Tobacco: Never Smokeless Tobacco: Never Alcohol Use Standard Drinks/Week Comments No 0 (1 standard drink = 0.6 oz pur e alcohol) Sex and Gender Information Value Date Recorded Sex Assigned at Not on file Legal Sex Male 3:27 PM EST Gender Identity Not on file Sexual Orientation Not on file Obstetrics History Last Filed Vital Signs Vital Sign Reading Time Taken Comments Blood Pressure 136/80 07/15/2024 11:25 AM EDT Pulse 71 07/15/2024 11:08 AM EDT Temperature - - Respiratory Rate - - Oxygen Saturation - - Inhaled Oxygen Concentration - - Weight 171 kg (376 lb) 12/02/2024 12:34 PM EST Height 175.3 cm (5' 9 ) 12/02/2024 12:34 PM EST Body Mass Index 55.53 12/02/2024 12:34 PM EST Plan of Treatment Upcoming Encounters Date Type Department Care Team (Late st Contact Info) Description 12/30/2024 3:45 PM EDT Consult Orthopedic Surgery - [facility] [address] [facility] [address] [place] [phone] Sadiq Lepe, DPM 175 [facility] [address] [place] [address] 01/07/2025 4:30 PM EDT Office Visit Endocrinology - [place] [address] [place] [phone] Amy Bentley PA [address] [place] [address] 01/13/2025 1:00 PM EDT Office Visit Gastroenterology - [address] [place] [address] [address] [place] [address] Dianne Engel, MARGOT [address] [address] 02/17/2025 2:00 PM EDT Office Visit Internal Medicine - [facility] [address] [place] [phone] Timothy Hernandez MD [address] [place] [address] Health Maintenance Due Date Last Done Comments Diabetes: Annual Foot Exam 2000 Diabetes: Annual Retina Eye Exam 2000 Pneumococcal Vaccine: Pediatrics (0 to 5 Years) and At-Risk Patients (6 to 64 Years) (2 of 2 - PCV) 07/28/2018 07/28/2017 Depression Screening 09/17/2022 HIV Screening 09/17/2022 Hepatitis C Screening 09/17/2022 Social Influencers of Health Screening 09/17/2022 Diabetes: Blood Sugar Control Test (HGBA1C) 11/14/2024 05/14/2024, 05/14/2024, 02/06/2024 Diabetes: Annual Urine Albumin-Creatinine Ratio (uACR) 06/05/2025 06/05/2024 Diabetes: Annual GFR (Glomerular Filtration Rate) 06/05/2025 06/05/2024, 06/05/2024 Hypertension/CHF/CAD Annual BMP Blood Test 06/05/2025 06/05/2024, 06/05/2024 Cholesterol Screening (Lipid Panel) 06/05/2029 06/05/2024, 05/14/2024 DTaP,Tdap,and Td Vaccines (8 - Td or Tdap) 11/22/2031 11/22/2021, 01/19/2010, 11/13/1994, Additional history exists HIB Vaccines Completed 01/20/1992, 04/09, 02/15/1991, Additional history exists IPV Vaccines Completed 11/13/1994, 01/07, 05/03/1991, Additional history exists Hepatitis B Vaccines Completed 07/26/1996, 11/27/1995, 10/20/1995 MMR Vaccines Completed 01/19/2009 Meningococcal ACWY Vaccine Aged Out 01/19/2010 N o longer eligible based on patient's age to complete this topic Varicella Vaccines Completed 01/25/2010, 12/30/1999 Influenza Vaccine Completed 07/15/2024, , 06/27/2022, Additional history exists COVID-19 Vaccine Completed 07/19/2024, , 01/03/2023, Additional history exists HPV Vaccines Aged Out No longer eligi ble based on patient's age to complete this topic Hepatitis A Vaccines Aged Out No long er eligible based on patient's age to complete this topic Meningococcal B Vacine Aged Out No lo nger eligible based on patient's age to complete this topic RSV Immunization Patients Under 20 months Aged Out No longer eligible based on patient's age to complete this topic Procedures Procedure Name Priority Date/Time Associated Diagnosis Comments XR ABDOMEN 1 VIEW Routine 12/02/2024 1:1 6 PM EST Left lower quadrant abdominal pain CT ABDOMEN PELVIS W CONTRAST Routine 11/25/2024 11:20 AM EST Cyst of spleen URINE ALBUMIN CREATININE RATIO Routine 06/05/2024 ANNUAL BMP BLOOD TEST Routine 06/05/2024 HEMOGLOBIN A1C Routine 05/14/2024 LIPID PANEL Routine 05/14/2024 from Last 3 Months or Most Recently Relevant to Health Maintenance Results * XR Abdomen 1 View (12/02/2024 1:16 PM EST) Anatomical Region Laterality Modality Body Radiographic Tika ging 12/05/2024 11:4 3 AM EST Impressions 12/05/2024 11:45 AM EST No evidence of obstruction. -------- FINAL REPORT -------- Dictated By: Erlinda Isbell Dictated Date: 12/05/2024 11:43 ET Assigned Physician: Erlinda Isbell Reviewed and Electronically Signed By: Erlinda Isbell Signed Date: 12/05/2024 11:45 ET Workstation ID: [id number] Transcribed By: Self Edit Transcribed Date: 12/05/2024 [...] Signed Date: 12/05/2024 11:45 ET Workstation ID: [id number] Transcribed By: Self Edit Transcribed Date: 12/05/2024 11:43 ET us Dianne Engel NEUROSURGICAL PHYSICIAN ASSISTANT IMG XR PROCEDURES Final Resul t * CT Abdomen Pelvis w Contrast (11/25/2024 [...] Signed Date: 11/25/2024 12:04 ET Workstation ID: [id number] Transcribed By: Self Edit Transcribed Date: 11/25/2024 [...] Signed Date: 11/25/2024 12:04 ET Workstation ID: [id number] Transcribed By: Self Edit Transcribed Date: 11/25/2024 11:45 ET Result [facility] Timothy Hernandez MD IMG CT PROCEDURES Final R esult * Urine Albumin Creatinine Ratio (06/05/2024) [facility] Urine Albumin Creatinine Ratio Abstracted Result [facility] Provider HEALTH MAINTENANCE Final Result * Annual BMP Blood Test (06/05/2024) [facility] Annual BMP Blood Test Abstracted Result [facility] Provider HEALTH MAINTENANCE Final Result * (ABNORMAL) Hemoglobin A1c (05/14/2024) [facility] Hemoglobin A1C 5.9(A) >=6.5 % Blood Venous blood specimen / Unknown Result [facility] Provider LAB BLOOD ORDERABLES Martita l Result * (ABNORMAL) Lipid panel (05/14/2024) [facility] LDL/HDL Ratio 5(A) 0 - 4 Triglycerides 197(A) 0 - 150 mg/dL Cholesterol 204(A) 0 - 200 mg/dL HDL 42 >=40 mg/dL LDL Cholesterol 123(A) 0 - 100 mg/dL Blood Venous blood specimen / Unknown us Historical Provider LAB BLOOD ORDERABLES Martita l Result from Last 3 Months or Most Recently Relevant to Health Maintenance Insurance [facility] Care Teams Technical Project Manager Relationship Specialty Start Date End Date Timothy Hernandez MD [address] [place] [phone] PCP - General Internal Medicine 09/06/16
--- OUTSIDE RECORDS SUMMARY | 2024-12-16 12:47 | XMS_ITS | Encounter Summary ---
Author Organization [facility] Address [address] [place] [address] Care Team Providers Care Heater Installer Name Role Phone Timothy Hernandez MD Primary Care Provider [phone] Reason for Referral * Imaging (Routine) - Pending Review Specialty Diagnoses / Procedures Referred By Contmichael kitchen Referred To Contact Radiology Diagnoses Abnormal CT of the abdomen Procedures MR Abdomen wo and w Contrast Dianne Engel NP [address] [facility] [address] [place] [address] Phone: tel: fax: [facility] Referral ID Status Reason Start Date Expiration Date V isits Requested Visits Authorized [id number] Pending Review 12/02/2024 12/02/2025 1 1 Reason for Visit * Reason Comments Abdominal Pain Encounter Details Date Type Department Care Team (Late st Contact Info) Description 12/02/2024 12:40 PM EST Office Visit Gastroenterology - [address] [place] [phone] Dianne Engel NP [address] [facility] [address] [place] [address] Left lower quadrant abdominal pain (Primary Dx); Abnormal CT of the abdomen Social History Tobacco Use Types Packs/Day Years [...] on file documented as of this encounter Last Filed Vital Signs Vital Sign Reading Time Taken Comments Blood Pressure - - Pulse - - Temperature - - Respiratory Rate - - Oxygen Saturation - - Inhaled Oxygen Concentration - - Weight 171 kg (376 lb) 12/02/2024 12:34 PM EST Height 175.3 cm (5' 9 ) 12/02/2024 12:34 PM EST Body Mass Index 55.53 12/02/2024 12:34 PM EST documented in this encounter Progress Notes * Dianne Engel, OPTICAL INSTRUMENT REPAIRER - 12/02/2024 12:40 PM EST CHIEF COMPLAINT: Abdominal Pain DATE OF LAST ENDOSCOPIC PROCEDURES: None HPI: Vimal Villagran is a 34 y.o. old male who was originally referred to us by Timothy Hernandez MD now presents to the gastroenterology department today as a new patient. Mr. Villagran tells me he has left sided discomfort after eating. This has been going on for years He cannot identify anyfoods that cause this. He does avoid milk. He frequently will need to move his bowels after this and the pain improves. He denies rectal bleeding or diarrhea. He denies nausea or vomiting. His sugarsare in good control, but he does take Metformin, Jardiance and Mounjaro which may be a factor. He denies constipation. His weight is slowly decreasing with the Trulicity. He had a recent Ct for this which showed no cause for his discomfort. It did show a cyst on his spleen and radiology is recommending an MRI. I did discuss this with Vimal and his ART CONSULTANT who was with himtoday and we will schedule that. I also want to check a KUB to rule out constipation as a cause of his pain. If it is I will start him on Miralax. If not I will try an antispasmotic before meals. I will see Vimal back soon, ROS: GENERAL: No malaise, significant weight loss or fever HEENT: No changes in hearing or vision or swallowing problems RESPIRATORY: No cough, wheezing or shortness of breath CARDIOVASCULAR: No chest pain, leg swelling or palpitations GI: See H&P The remainder of the review of systems is reviewed and negative. PAST MEDICAL HISTORY: Past Medical History: Diagnosis Date Asthma 09/19/2016 DX:Asthma Bilateral pes planus 06/20/2017 DX:Bilateral pes planus Diabetes mellitus type 2, uncomplicated (CMS/HCC) 03/31/2021 DX:Diabetes mellitus type 2, uncomplicated (HCC) HTN (hypertension) 09/19/2016 DX:HTN (hypertension) Hypertriglyceridemia 09/19/2016 DX:Hypertriglyceridemia Mental retardation 09/19/2016 DX:Mental retardation Peripheral edema 11/14/2016 DX:Peripheral edema Venous stasis syndrome 06/20/2017 DX:Venous stasis syndrome PAST SURGICAL HISTORY: Past Surgical History: Procedure Laterality Date OTHER SURGICAL HISTORY Right 07/2021 PROCEDURE: ---- OTHER ----; COMMENT: abscess on testicles SOCIAL HISTORY: Social History Tobacco Use Smoking status: Never Smokeless tobacco: Never Substance Use Topics Alcohol use: No FAMILY HISTORY: No CRC/polyps IBD ACTIVE MEDICATIONS: Current Outpatient Medications Medication Sig Dispense Refill adalimumab (Humira,CF, Pen) 40 mg/0.4 mL pen Inject 40 mg as directed twice a week. amLODIPine (NORVASC) 5 mg tablet Take 1 Tablet by mouth 2 times daily. atorvastatin (LIPITOR) 80 mg tablet Take 1 tablet (80 mg total) by mouth 1 (one) time each day. 90 tablet 0 blood sugar diagnostic (FreeStyle Lite Strips) test strip USE DIRECTED TO CHECK FASTING GLUCOSE EVERY AM AND AFTER DINNER blood-glucose meter kit Use as directed to check fasting glucose q AM and after dinner blood-glucose meter,continuous misc 1 Device by Does not apply route See Admin Instructions. Use daily with dexcom g 7 sensors chlorhexidine (Hibiclens) 4 % external liquid LATHER ON AFFECTED AREAS OF SKIN IN THE SHOWER DAILY.LET SIT ON SKIN FOR 2 -3 MINUTES THEN WASH OFF clindamycin phosphate 1 % gel, once daily Apply a thin layer to affected areas twice daily clotrimazole (LOTRIMIN) 1 % cream Twice daily rash for 1 week empagliflozin-metformin (Synjardy) 12.5-500 mg tablet Take 1 Tablet by mouth 2 times daily. finasteride (PROSCAR) 5 mg tablet Take 0.5 mg by mouth daily. fluticasone propionate (FLONASE) 50 mcg/actuation nasal spray INSTILL 1 SPRAY INTO EACH NOSTRIL ONCE DAILY 48 mL 1 FREESTYLE LANCETS MISC USE DIRECTED TO CHECK FASTING GLUCOSE EVERY AM AND AFTER DINNER glucose sensor,implant-dexamet device 1 Device by Does not apply route See Admin Instructions. Change sensor every 10 days insulin glargine U-300 conc (Toujeo Max U-300 SoloStar) 300 unit/mL (3 mL) CONCENTRATED injection pen Inject 54 Units into the skin 2 times daily. lisinopril (PRINIVIL,ZESTRIL) 40 mg tablet Take 1 Tablet by mouth every morning. loratadine (CLARITIN) 10 mg tablet TAKE 1 TABLET BY MOUTH EVERY DAY 90 tablet 1 nystatin (MYCOSTATIN) 100,000 unit/gram powder Apply to affected areas BID omeprazole (PriLOSEC) [address] capsule Take 1 Capsule by mouth every morning (before breakfast). pen needle, diabetic 32 gauge x 5/32 needle Use one daily with insulin spironolactone-hydroCHLOROthiazide (ALDACTAZIDE) 25-25 mg per tablet Take 1 Tablet by mouth every morning. [place] weekly ALLERGIES: Allergies Allergen Reactions Codeine Reaction not mentioned Doxycycline Reaction not mentioned Erythromycin Reaction not mentioned Phenergan Plain Reaction not mentioned Promethazine PHYSICAL EXAM: Visit Vitals Ht 1.753 m (69 ) Wt 171 kg (376 lb) BMI 55.53 kg/m?? Smoking Status Never BSA 2.7 m?? APPEARANCE: Alert and in no acute distress EYES: PERRLA, conjunctiva and sclera normal. HEART: RRR with normal S1 and S2, no murmurs appreciated LUNG: clear to auscultation ABDOMEN: obese, nontender wtihout masses NEURO: Awake, alert and oriented x 3 Assessment & Plan Left lower quadrant abdominal pain Orders: XR Abdomen 1 View; Future Abnormal CT of the abdomen Orders: MR Abdomen wo and w Contrast; Future No follow-ups on file. I would like to thank Timothy Hernandez MD for the opportunity to partake in the patient's care. Board Certified Gastroenterology [facility] W [phone] [place] [phone] [email or web address] Dianne Engel NP documented in this encounter Plan of Treatment Upcoming Encounters Date Type Department Care Team (Late st Contact Info) Description 12/30/2024 3:45 PM EDT Consult Orthopedic Surgery - [place] 250 175 [facility] [place] 250 [place] [phone] Sadiq Lepe DPM [address] [address] 01/07/2025 4:30 PM EDT Office Visit Endocrinology - [address] [phone] Amy Bentley PA [address] [place] [address] 01/13/2025 1:00 PM EDT Office Visit Gastroenterology - [address] [address] Dianne Engel NP [address] [address] 02/17/2025 2:00 PM EDT Office Visit Internal Medicine - [address] [phone] Timothy Hernandez MD [address] [place] [phone] Scheduled Orders Name Type Priority Associated Diagnoses Orde r Schedule MR Abdomen wo and w Contrast Imaging Routine Abnormal CT of the abdomen Expected: 12/02/2024, Expires: 12/02/2025 documented as of this encounter Results * XR Abdomen 1 [...] Signed Date: 12/05/2024 11:45 ET Workstation ID: [id number] Transcribed By: Self Edit Transcribed Date: 12/05/2024 [...] Signed Date: 12/05/2024 11:45 ET Workstation ID: [id number] Transcribed By: Self Edit Transcribed Date: 12/05/2024 11:43 ET Dianne Engel NP IMG XR PROCEDURES Final Resul t documented in this encounter Visit Diagnoses Diagnosis Left lower quadrant abdominal pain- Primary Abnormal CT of the abdomen Nonspecific (abnormal) findings on radiological and other examination of abdominal area, including retroperitoneum Left lower quadrant abdominal pain documented in this encounter Care Teams Heater Installer Relationship Specialty Start Date End Date Timothy Hernandez MD [address] [place] [address] PCP - General Internal Medicine 09/06/16 documented as of this encounter
--- OUTSIDE RECORDS SUMMARY | 2024-12-16 12:47 | XMS_ITS | Encounter Summary ---
Author Organization [facility] Address [address] [place] [address] Care Team Providers Care Phlebotomy Tech Name Role Phone Timothy Hernandez MD Primary Care Provider [phone] Reason for Visit * Reason Onset Date Comments Results 11/26/2024 Encounter Details Date Type Department Care Team (Late st Contact Info) Description 11/26/2024 Telephone Internal Medicine - [place] [address] [place], [place] [phone] Timothy Hernandez MD [address] [place] [address] Results Social History Tobacco Use Types Packs/Day Years [...] on file documented as of this encounter Progress Notes * Vicki Sauer MA - 11/26/2024 3:42 PM EST workday manager notified * Mayra Newton - 11/26/2024 3:26 PM EST Calling back for results of CT documented in this encounter Plan of Treatment Upcoming Encounters Date Type Department Care Team (Late st Contact Info) Description 12/30/2024 3:45 PM EDT Consult Orthopedic Surgery - [place] 250 175 [facility] 250 [place] [address] Sadiq Lepe, DPM [address] [address] 01/07/2025 4:30 PM EDT Office Visit Endocrinology - [place] [address] [place] [address] Amy Bentley PA 305 [place] [address] 01/13/2025 1:00 PM EDT Office Visit Gastroenterology - [address] [address] Dianne Engel, CAR COUPLER [address] [address] 02/17/2025 2:00 PM EDT Office Visit Internal Medicine - [address] [phone] Timothy Hernandez MD [address] [place] [address] documented as of this encounter Visit Diagnoses Not on filedocumented in this encounter Care Teams Phlebotomy Tech Relationship Specialty Start Date End Date Timothy Hernandez MD [address] [place] [address] PCP - General Internal Medicine 09/06/16 documented as of this encounter
--- OUTSIDE RECORDS SUMMARY | 2024-12-16 12:47 | XMS_ITS | Encounter Summary ---
Author Organization [facility] Address [address] [facility] [address] [place] [address] Phone Care Team Providers Care Sleeve Machine Tender Name Role Phone Timothy Santiago Primary Care Provider [phone] Encounter Details Date Type Department Care Team (Late st Contact Info) Description 01/11/2022 Telephone [facility] [address] [facility] [address] [place] [address] Roberto Wood MD [address] [facility] [address] [place] [phone] Social History Tobacco Use Types Packs/Day Years Used Date Smoking Tobacco: Never Alcohol Use Standard Drinks/Week Comments No 0 (1 standard drink = 0.6 oz pur e alcohol) Sex and Gender Information Value Date Recorded Sex Assigned at Not on file Legal Sex Male 5:22 PM EST Gender Identity Not on file Sexual Orientation Not on file documented as of this encounter Miscellaneous Notes * Telephone Encounter - Roberto Wood MD - 01/13/2022 2:03 PM EDT Rx sent * Telephone Encounter - Tiff Iglesias [place] - 01/11/2022 4:49 PM EDT [facility], they handle all of the pts in house care and they need a new script for amlodipine sent to the [facility] in order for them to administer it. The new script must say Take 5 mg daily in the morning. Thank you Documentation * Telephone Encounter - Jessica Joaquin - 01/11/2022 2:20 PM EDT [facility] called, they handle all of the pts in house care and they need a new script for amlodipine sent to the [facility] in order for them to administer it. The new script must say Take 5 mg daily in the morning. Thank you documented in this encounter Plan of Treatment Upcoming Encounters Date Type Department Care Team (Late st Contact Info) Description 01/08/2025 2:30 PM EDT [facility] Visit [facility] [address] [address] Roberto Wood MD [address] [phone] documented as of this encounter Visit Diagnoses Not on filedocumented in this encounter Care Teams Sleeve Machine Tender Relationship Specialty Start Date End Date Timothy Santiago [address] [place] [id number] PCP - General 10/19/20 documented as of this encounter
== END 2024-12-16 12:07 | disposition home or self-care (01) ==
PROVIDERS: PCP Internal Medicine; Visit Provider Nurse Practitioner Family
DX: G47.33 Obstructive sleep apnea (adult) (pediatric) (principal); F81.9 Developmental disorder of scholastic skills, unspecified; R09.81 Nasal congestion
CPT/HCPCS: 99214

== ENCOUNTER → 2024-12-16 11:12 | Outpatient (BNVA) | payer OTHER, SELFPAY | PROVIDERS: PCP Internal Medicine; Visit Provider Nurse Practitioner Family | DX: G47.33 Obstructive sleep apnea (adult) (pediatric) (principal); F81.9 Developmental disorder of scholastic skills, unspecified; R09.81 Nasal congestion; Z99.89 Dependence on other enabling machines and devices | CPT/HCPCS: 99212 ==

== ENCOUNTER 2025-06-23 13:04 | Outpatient (AMB) | payer OTHER, SELFPAY ==
--- NOTE | 2025-06-23 13:02 | MHC.OFFVIS ---
Vital Signs 06/23/25 13:03 Height 5 ft 9 in Weight 376 lb BMI 55.5 BP 140/90 H Blood Pressure Location Lt brachial Position Sitting Pulse 76 Pulse Source Pulse Oximeter Pulse Oximetry (%) 97 Oxygen Delivery Method Room Air Intake Visit Reasons: 6 mnts f/u appt Intake Note: Patient presents follow up LUCIO. Compliance in chart Chemical Educator Required: No Accompanied by: Self / Same As Patient Allergies codeine Allergy (Unknown, Uncoded 06/23/25 13:10) Unknown doxycycline Allergy (Unknown, Uncoded 06/23/25 13:10) Unknown erythromycin Allergy (Unknown, Uncoded 06/23/25 13:10) Unknown phenergan plain Allergy (Unknown, Uncoded 06/23/25 13:10) Unknown promethazine Allergy (Unknown, Uncoded 06/23/25 13:10) Unknown Medication List - Last Reconciled 06/23/25 by ASHLEY Sifuentes adalimumab (Humira(CF) Pen) 40 mg subcut QWEEK adalimumab (Humira Pen) 40 mg subcut QWEEK amlodipine 5 mg PO DAILY aspirin (Adult Low Dose Aspirin) 81 mg PO DAILY azelastine 2 sprays intranasal BEDTIME 30 days dulaglutide (Trulicity) 3 mg subcut QWEEK empagliflozin (Jardiance) 10 mg PO QAM fluticasone propionate 50 mcg/actuation (Flonase Allergy Relief) 1 spray intranasal DAILY furosemide (Lasix) 20 mg PO DAILY ibuprofen 400 mg PO .prn lisinopril 30 mg PO DAILY loratadine (Claritin) 10 mg PO DAILY metformin 1,000 mg PO BID mometasone 0.1% 1 appl topical DAILY nystatin 10,000,000 units PO .qd omeprazole 40 mg PO DAILY spironolacton-hydrochlorothiaz 25-25 mg 1 tab PO DAILY spironolactone 25 mg PO DAILY HPI Comments Details: History of Present Illness The patient is a 34-year-old male presenting for follow-up for management of sleep apnea. Patient is accompanied by his shared living mentor. Sleep Apnea: - Diagnosed with sleep apnea, managed with CPAP therapy. - Reports the CPAP machine is producing excessive noise similar to a jet engine, though this does not disturb his sleep. -reports that he sleeps well with his CPAP machine. - Friends have noted the machine's noise during travel; the machine was set-up on September 15, 2022. - Compliance with CPAP therapy, average use recorded at 77%, with reports indicating less than two apnea events per hour. - Maximum pressure reached 13.2 cmH2O, indicating effective therapy management. Nasal Congestion: - Previously prescribed Flonase and Azelastine for nasal congestion relief. - Desires to stop using Flonase, as he prefers Azelastine for as needed symptomatic relief. - Reports usage of Azelastine as needed due to its effectiveness in combating allergy-induced congestion. CPAP compliance review: Does the patient have sufficient PAP supplies? Yes Does the patient clean PAP supplies regularly? Yes Does the patient use distilled water in their PAP machine water reservoir? Yes PAP compliance report reviewed. Compliance report date range: 03/25/2025 - 06/22/2025 Overall usage: 77 percent Usage greater than 4 hours: 77 percent PAP setting: APAP 10 to 14 cmH2O with EPR 3 Average usage on days used: Greater than 8 hours Average mask leakage: 0 LPM Residual AHI: 1.3 per hour Social History - Shared living arrangements with a mentor. - Has friends who express concern over CPAP machine noise during travel- they travel together about 4 times per year. Review of Systems - Respiratory: Reports noise from CPAP machine but denies sleep disturbance. - Ears/Nose/Throat: Reports use of Azelastine for congestion; denies current congestion. COUNT INCLUDES THE [facility] Surgical History H/O removal of cyst Family History Father No problems noted. Mother Diabetes Social History Alcohol intake: never Patient Tobacco Use Status: Never used Tobacco Physical Exam Vital Signs: Last Vital Signs Pulse 76 06/23/25 13:03 BP 140/90 H 06/23/25 13:03 Pulse Ox 97 06/23/25 13:03 Oxygen Delivery Method Room Air 06/23/25 13:03 BMI result Body Mass Index 55.5 Const General: no acute distress Orientation/consciousness: patient oriented x3 Resp Effort & Inspection: normal respiratory effort and able to speak in complete sentences Auscultation: clear to auscultation bilaterally Neuro General: patient oriented x3 Psych Mental Status: mental status grossly normal Speech and movement: Clear speech present Attitude: cooperative Assessment & Plan Assessment & Plan (1) Obstructive sleep apnea syndrome, severe: Code(s): G47.33 - Obstructive sleep apnea (adult) (pediatric) Category: Medical (2) Cognitive developmental delay: Code(s): F81.9 - Developmental disorder of scholastic skills, unspecified Category: Medical (3) Nasal congestion: Code(s): R09.81 - Nasal congestion Category: Medical Plan Discussion Notes During the visit, I discussed the management of the patient's sleep apnea and the concern over the noise produced by the CPAP machine. I explained that the noise should not be excessively loud. I recommended contacting the regional supplier to assess the machine. We also discussed discontinuing Flonase due to the patient's preference for Azelastine, which will be used as needed. I educated him on the possible use of earplugs for friends who might find the CPAP noise problematic. We considered a follow-up in one year, with a plan for CPAP reassessment for potential machine replacement eligibility in 2025. Patient was informed and verbally consented to the use of an ambient scribe for clinic note documentation during this visit. Plan For LUCIO and chronic nasal congestion: - Continue APAP 10-14 cmH2O with the EPR 3 nightly > 4 hours, as pt continues to have good clinical effect with use. - Continue Azelastine 137 mcg nasal spray, 2 sprays into each nostril daily at bedtime, however we will adjust order from scheduled to as-needed - Hold Flonase order, as patient does not feel is helpful at expresses medication burden. - Continue healthy diet and increased physical activity such as walking. For CPAP maintenance: - Clean and change PAP supplies routinely, including filters, masks, tubing, and water reservoir. - Use distilled water in PAP water reservoir. - Pt to contact us or respiratory company with any questions or concerns related to a CPAP machine. Pt to follow-up in 12 months or sooner prn. Medications: Changed From azelastine administer into each nostril x's 2 2 sprays intranasal BEDTIME 30 days 30 mL 6RF To azelastine administer into each nostril x's 2 2 sprays intranasal BEDTIME PRN 30 mL 6RF nasal congestion 30 days Coding Level of Care Code Est Pt Level 4 (87833) Diagnoses Obstructive sleep apnea syndrome, severe G47.33 Cognitive developmental delay F81.9 Nasal congestion R09.81
[2025-06-23 13:03] VITALS: BP 140/90; PULSE 76; O2SAT 97; BMI 55.5
--- OUTSIDE RECORDS SUMMARY | 2025-06-23 18:08 | XMS_ITS | Clinical Summary ---
Author Organization [facility] Address [address] [address] Phone Care Team Providers Care Manager Residential Name Role Phone Timothy Santiago Primary Care Provider [phone] Allergies Active Allergy Reactions Criticality Noted Date [...] THE EVENING 180 tablet 3 4 Active doxazosin (Cardura) 2 MG tablet Take 1 tablet (2 mg total) by mouth every night 90 tablet 3 5 01/09/20 26 Active Active Problems Problem Noted Date Diagnosed Date Proteinuria 01/08/2025 Abscess of buttock 11/24/2021 Uncontrolled type 2 diabetes mellitus 11/22/2021 Overview (07/09/2024): Replacing diagnoses that were inactivated after the 07/09/24 Regulatory Import Type 2 diabetes mellitus without complication Edema 12/24/2020 Essential hypertension 08/10/2012 Resolved Problems Problem Noted Date Diagnosed Date Resolved Date Obesity 12/24/2020 04/22/2021 Obstructive sleep apnea 07/21/202004/08 Overview (04/22/2021): [facility] Split Night Polysomnogram Date 07/09/2020. Wt 420#; BMI 62. Without PAP:AHI 155, Central apneas 0; Obstructive apneas 7; Mixed apneas 0; hypopneas 37; average oxygen saturation 89% (lowest 83%). With PAP: CPAP @ 12; AHI 1.1 and oxygen saturation averaged 92% with oxygen harris of 89%. - Obstructive Sleep Apnea - severe; mostly hypopneas; without sleep related hypoventilation by 2019 split night polysomnogram. [facility] Split Night Polysomnogram Date 07/09/2020. Wt 420#; [...] disability 09/19/201604/08 Allergic rhinitis 05/14/2013 04/22/2021 Immunizations Immunization Administration Dates Next Due DTaP 11/13/1994, 2,05/03/1991,02/15,1990 DTaP / HiB / IPV 01/20/1992, 1,02/15/1991,12/08 Hep B, Adolescent or Pediatric 07/26/1996,1995,10/20/1995 IPV 11/13/1994, 1,02/15/1991,12/18 Influenza (IM) Preservative Free 07/15/2024 Influenza, MDCK, PF, Quadrivalent 06/27/2022, Influenza, MDCK, Quadrivalen t, with preservative 09/16/2020,07/28/2017,07/12/2016 Influenza, Quadrivalent, Pre servative Free 09/16/2020 MMR 01/19/2009 Meningococcal MCV4P 01/19/2010 Moderna SARS-COV-2 09/09/2021,12/16/2020, 021 PPD Test 11/23/1994 Pfizer SARS-COV-2 01/03/2023 Pneumococcal Polysaccharide 07/28/2017 Td 11/22/2021 Tdap 01/19/2010 Varicella 01/25/2010,12/30/1999 Family History Medical [...] Sign Reading Time Taken Comments Blood Pressure 138/78 01/08/2025 2:10 PM EDT Pulse 87 01/08/2025 2:10 PM EDT Temperature - - Respiratory Rate - - Oxygen Saturation 95% 01/08/2025 2:10 PM EDT Inhaled Oxygen Concentration - - Weight 170 kg (374 lb 3.2 oz) 01/08/2025 2:10 PM EDT Height 175.3 cm (5' 9 ) 06/23/2021 3:22 PM EDT Body Mass Index 55.26 06/23/2021 3:22 PM EDT Plan of Treatment Upcoming Encounters Date Type Department Care Team (Late st Contact Info) Description 01/07/2026 2:00 PM EDT Office Visit [facility] [address] [phone] Roberto Wood MD [address] [phone] Health Maintenance Due Date Last Done Comments Pneumococcal Vaccine: Peds ( 0 to 5 Years) and At-Risk Patients (6 to 49 Years) (2 of 2 - PCV) 07/28/2018 07/28/2017 Diabetes: Ophthalmology Exam 06/23/2021 Diabetes: Pedal Pulse Checked 06/23/2021 Diabetes: Sensory Foot Exam 06/23/2021 Diabetes: Visual Foot Exam 06/23/2021 Diabetes: Hemoglobin A1C 05/14/2025 025, 05/14/2024, 11/07/2023, Additional history exists Influenza Vaccine (#1) 2025 4, 06/27/2022, 06/27/2022, Additional history exists Hepatitis B Vaccine Completed 07/26/1996, 11/27/1995, 10/20/1995 Pneumococcal Vaccine: 50+ Years Discontinued 7 Procedures Procedure Name Priority Date/Time Associated Diagnosis [...] Most Recently Relevant to Health Maintenance Insurance [facility] Medicaid [facility] Medicaid Care Teams Manager Residential Relationship Specialty Start Date End Date Timothy Santiago [address] [place] [id number] PCP - General 10/19/20
--- OUTSIDE RECORDS SUMMARY | 2025-06-23 18:08 | XMS_ITS | Encounter Summary ---
Author Organization [facility] Address [address] [facility] [address] [place] [address] Phone Care Team Providers Care Track Laying Equipment Operator Name Role Phone Timothy Santiago Primary Care Provider [phone] Encounter Details Date Type Department Care Team (Late Contact Info) Description 05/23/2022 Documentation Only [facility] [address] [facility] [address] [place] [address] Roberto Wood MD [address] [address] Social History Tobacco Use Types [...] Department Care Team (Late Contact Info) Description 01/07/2026 2:00 PM EDT [facility] [address] [phone] Roberto Wood MD [address] [address] documented as of this encounter Visit Diagnoses Not on filedocumented in this encounter Care Teams Track Laying Equipment Operator Relationship Specialty Start Date End Date Timothy Santiago [address] [place] [address] PCP - General 10/19/20 documented as of this encounter
--- OUTSIDE RECORDS SUMMARY | 2025-06-23 18:08 | XMS_ITS | Encounter Summary ---
Author Organization [facility] Address [address] [facility] 200 [place] [address] Phone Care Team Providers Care Keg Washer Name Role Phone Timothy Santiago Primary Care Provider [phone] Encounter Details Date Type Department Care Team (Late st Contact Info) Description 01/11/2022 Telephone [facility] [address] [facility] [address] [place] [address] Roberto Wood MD [address] [facility] [address] [place] [phone] Social History Tobacco Use Types Packs/Day Years [...] new script for amlodipine sent to the [facility] in order for them to administer it. The new script must say Take 5 mg daily in the morning. Thank you Documentation * Telephone Encounter - Jessica Joaquin - 01/11/2022 2:20 PM EDT [facility], they handle all of the pts in house care and they need a new script for amlodipine sent to the [facility] in order for them to administer it. The new script must say Take 5 mg daily in the morning. Thank you documented in this encounter Plan of Treatment Upcoming Encounters Date Type Department Care Team (Late st Contact Info) Description 01/07/2026 2:00 PM EDT [facility] Visit [facility] [address] [address] Roberto Wood MD [address] [phone] documented as of this encounter Visit Diagnoses Not on filedocumented in this encounter Care Teams Keg Washer Relationship Specialty Start Date End Date Timothy Santiago [address] [place] [id number] PCP - General 10/19/20 documented as of this encounter
--- OUTSIDE RECORDS SUMMARY | 2025-06-23 18:08 | XMS_ITS | Encounter Summary ---
Author Organization [facility] Address [address] [facility] [address] [place] [address] Phone Care Team Providers Care Machine Accountant Name Role Phone Timothy Santiago Primary Care Provider [phone] Encounter Details Date Type Department Care Team (Late Contact Info) Description 05/23/2022 Documentation Only [facility] [address] [place] [address] Roberto Wood MD [address] [address] Social History Tobacco Use Types [...] [facility] [address] [phone] Roberto Wood MD [address] [address] documented as of this encounter Visit Diagnoses Not on filedocumented in this encounter Care Teams Machine Accountant Relationship Specialty Start Date End Date Timothy Santiago [address] [place] [address] PCP - General 10/19/20 documented as of this encounter
--- OUTSIDE RECORDS SUMMARY | 2025-06-23 18:08 | XMS_ITS | Clinical Summary ---
Author Organization [place] [address] James zabala Formerly [facility] Building Address [address] [place] [phone] Phone Care Team Providers Care Scrap Wheeler Name Role Phone Bela Uribe MD Primary Care Provider [phone] Allergies Active Allergy Reactions Criticality Noted Date Comments Codeine 09/19/2016 Reaction not mentioned Doxycycline 09/19/2016 Reaction not mentioned Erythromycin 09/19/2016 Reaction not mentioned Phenergan Plain 09/19/2016 Reaction not mentioned Promethazine 09/21/2011 Medications amLODIPine (NORVASC) 5 mg tablet Take 1 [...] to affected areas twice daily 1 Active nystatin (MYCOSTATIN) 100,000 unit/gram powder Apply to affected areas BID 3 Active omeprazole (PriLOSEC) [address] capsule Take 1 Capsule by mouth every morning (before breakfast). 4 Active spironolactone-h ydroCHLOROthiazi de (ALDACTAZIDE) 25-25 mg per tablet Take 1 Tablet by mouth every morning. 4 Active finasteride (PROSCAR) 5 mg tablet Take 0.5 mg by mouth daily. 3 Active glucose sensor,implant-d examet device 1 Device by Does not apply route See Admin Instructions. Change sensor every 10 days 4 Active FREESTYLE LANCETS [facility] [place] USE DIRECTED TO CHECK FASTING GLUCOSE EVERY AM AND AFTER DINNER 4 Active fluticasone propionate (FLONASE) 50 mcg/actuation nasal spray INSTILL 1 SPRAY INTO EACH NOSTRIL ONCE DAILY 48 mL 1 4 Active Additional Information Patient taking differently:1 spray Each Nostril Daily,Taking in the morning, Reported on 06/16/2025 atorvastatin (LIPITOR) 80 mg tablet TAKE 1 TABLET BY MOUTH EVERY DAY 90 tablet 5 Active Additional Information Patient taking differently:80 mg oralEvery morning, Reported on 06/16/2025 FreeStyle [place] Lite monitoring kit USE DIRECTED TO CHECK FASTING GLUCOSE EVERY MORNING AND AFTER DINNER 1 kit 5 Active BD Cheryl 2nd Gen Pen Needle 32 gauge x /32 needleIndication s:Type 2 diabetes mellitus with other diabetic kidney complication (CMS/HCC V24, CMS/HCC V28) USE ONE DAILY WITH INSULIN 100 each 1 5 Active polyethylene glycol (MIRALAX) 17 gram packetIndication s:Left lower quadrant abdominal pain,Generalized abdominal pain,Constipatio n, unspecified constipation type Take 17 g by mouth continuously if needed for constipation. 30 packet 11 5 026 Active Dexcom G7 Survey Research Manager [facility] [place] ADMIN INSTRUCTIONS. USE DAILY WITH DEXCOM G 7 SENSORS 1 each 5 Active loratadine (CLARITIN) 10 mg tablet Take 1 tablet (10 mg total) by mouth 1 (one) time each day. 90 tablet 5 Active Additional Information Patient taking differently:10 mg oral Daily,Taking in the morning, Reported on 06/16/2025 aspirin 81 mg EC tablet TAKE 1 TABLET BY MOUTH EVERY DAY IN THE MORNING 90 tablet 5 Active lisinopril (PRINIVIL,ZESTRI L) 40 mg tabletIndication s:Essential (primary) hypertension TAKE 1 TABLET BY MOUTH EVERY DAY IN THE MORNING 90 tablet 5 Active dicyclomine (BENTYL) 20 mg tablet Take 1 tablet (20 mg total) by mouth 2 (two) times a day. 180 each 3 5 026 Active clotrimazole (LOTRIMIN) 1 % cream APPLY TO AFFECTED AREA TWICE DAILY RASH FOR 1 WEEK 30 g 5 Active FreeStyle Lancets 28 gauge lancetsIndicatio ns:Type 2 diabetes mellitus with other diabetic kidney complication ([facility] V24, [facility]28) USE DIRECTED TO CHECK FASTING GLUCOSE EVERY AM AND AFTER DINNER 200 each 3 5 Active blood sugar diagnostic (FreeStyle Lite Strips) test stripIndications :Type 2 diabetes mellitus with other diabetic kidney complication ([facility] V24, [facility] V28) USE DIRECTED TO CHECK FASTING GLUCOSE EVERY AM AND AFTER DINNER 200 strip 3 5 Active azelastine (ASTELIN) 137 mcg (0.1 %) nasal spray Administer 2 sprays into each nostril at bedtime. 5 Active doxazosin (CARDURA) 2 mg tablet Take 1 tablet (2 mg total) by mouth at bedtime. Active empagliflozin-me tformin (Synjardy) 12.5-500 mg tabletIndication s:Type 2 diabetes mellitus without complication, with long-term current use of insulin ([facility] V24, [facility] V28) TAKE 1 TABLET BY MOUTH TWICE A DAY 60 tablet 5 5 Active Mounjaro 7.5 mg/0.5 mL injection Inject 0.5 mL (7.5 mg total) under the skin every 7 (seven) days. 2 mL 5 5 Active insulin glargine U-300 conc (Toujeo Max U-300 SoloStar) 300 unit/mL (3 mL) CONCENTRATED injection pen Inject 60 Units into the skin 2 times daily. 45 mL 11 5 Active Dexcom G7 Sensor device 1 EA. 5 Active clotrimazole (LOTRIMIN) 1 % cream Apply topically 2 (two) times a day. 30 g 3 5 025 Active chlorhexidine (Hibiclens) 4 % external liquid Apply topically 1 (one) time each day if needed for wound care for up to 14 days. 120 mL 025 Active Active Problems Problem Noted Date Diagnosed Date Hyperlipidemia 01/09/2025 Mental disability 11/02/2022 Abscess, gluteal cleft 11/24/2021 Type 2 diabetes mellitus wit hout complication ([facility] V24, [facility] V28) 03/31/2021 Obstructive sleep apnea 07/21/2020 Overview (09/10/2024): [facility] Split Night Polysomnogram Date 07/09/2020. Wt 420#; [...] split night polysomnogram. Gastroesophageal reflux disease 08/01/2019 Assessment & Plan (03/17/2025 4:08 PM EDT): Well controlled with daily Omeprazole 40mg Bilateral pes planus 06/20/2017 Venous stasis syndrome 06/20/2017 Peripheral edema 11/14/2016 Asthma 09/19/2016 HTN (hypertension) 09/19/2016 Hypertriglyceridemia 09/19/2016 Allergic rhinitis 05/14/2013 Encounters Date Type Department Care Team Description 06/16/2025 3:15 PM EDT Office Visit Orthopedic Surgery - [address] [phone] Sadiq Lepe, DPM Dermatophytosis of nail (Primary Dx); Tinea pedis of both feet; Type 2 diabetes mellitus without complication, with long-term current use of insulin ([facility] V24, [facility] V28); Pain in toe of right foot; Pain in toe of left foot; Diabetic mononeuropathy simplex ([facility] V24, [facility] V28); Difficulty walking 06/16/2025 8:00 AM EDT Office Visit Internal Medicine - [facility] [address] [place] [phone] Timothy Hernandez MD Routine general medical examination at a health care facility (Primary Dx); Primary hypertension 05/20/2025 4:30 PM EDT Office Visit Endocrinology - [place] [id number] [place] [phone] Amy Bentley PA Type 2 diabetes mellitus without complication, with long-term current use of insulin ([facility] V24, [facility] V28) (Primary Dx); Hyperlipidemia, unspecified hyperlipidemia type; Secondary hypertension 05/20/2025 Telephone Internal Medicine - [address] [phone] Timothy Hernandez MD 05/20/2025 Telephone Internal Medicine - [address] [phone] Timothy Hernandez MD 05/20/2025 Telephone Internal Medicine - [address] [phone] Timothy Hernandez MD 04/04/2025 Telephone Endocrinology [address] [phone] Amy Bentley PA from Last 3 Months Immunizations Name Administration Dates Next Due DTaP (Infanrix) 6wks to less than 7yo ,04/27/1992,05/03/1991,02/15,1990 [id number] (Pentacel) 2mo to less than 5yo 01/20/1992,05/03/1991,02/15/1991,12/08 Hepatitis B Pediatric (Enger ix B; Recombivax HB) to less than 20 yo 07/26/1996,11/27/1995,10/20/1995 IPV Inactivated polio (Ipol) 6wks and older 11/13/1994,05/03/1991,02/15/1991,12/18 Influenza Quadravalent, MDCK , 0.5ml, preservative free (Flucelvax) 6mo and older 11/29/2023,06/27/2022,06/25/2021 Influenza Quadravalent, MDCK , 0.5ml, with preservative (Flucelvax) 6mo and older 09/16/2020,07/28/2017,07/12/2016 Influenza Quadrivalent, 0.5m l, preservative free (Fluarix; FluLaval; Fluzone) ages 6mo and older (Afluria) 3yo and older 09/16/2020,07/12/2016 Influenza trivalent, 0.5mL, preservative free (Fluarix; FluLaval; Fluzone) ages 6mo and older (Afluria) 3 years and older 07/15/2024 MMR, measles mumps and rubel la Live (Priorix; M-M-R II) 12mo and older 01/19/2009 Meningococcal MCV4P 01/19/2010 Moderna SARS-CoV-2 COVID-19, mRNA, LNP-S, preservative free 09/09/2021,12/16/2020,11/18/2020 PPD Test 11/23/1994 Pfizer (ages 12 & older) Biv alent, COVID-19 01/03/2023 Pfizer SARS-CoV-2 COVID-19, mRNA, LNP-S, preservative free [...] laina Diabetes mellitus type 2, un complicated ([facility] V24, [facility] V28) 03/31/2021 DX:Diabetes mellitus type 2 , uncomplicated ([facility]) Family History Medical History Relation [...] Sign Reading Time Taken Comments Blood Pressure 148/82 06/16/2025 8:28 AM EDT Pulse 74 06/16/2025 8:13 AM EDT Temperature 35.6 C (96 F) 05/20/2025 4:48 PM EDT Respiratory Rate - - Oxygen Saturation 96% 01/07/2025 4:35 PM EDT Inhaled Oxygen Concentration - - Weight 172 kg (380 lb 3.2 oz) 06/16/2025 8:13 AM EDT Height 175.3 cm (5' 9 ) 06/16/2025 8:13 AM EDT Body Mass Index 56.15 06/16/2025 8:13 AM EDT Plan of Treatment Upcoming Encounters Date Type Department Care Team (Late st Contact Info) Description 07/14/2025 1:15 PM EDT [facility] [address] [place] [phone] Malini Lee, MARGOT [address] [place] [address] Health Maintenance Due Date Last Done Comments Diabetes: Annual Foot Exam 2000 Diabetes: Annual Retina Eye Exam 2000 Pneumococcal Vaccine: Pediatrics (0 to 5 Years) and At-Risk Patients (6 to 49 Years) (2 of 2 - PCV) 07/28/2018 07/28/2017 Social Influencers of Health Screening 09/17/2022 Depression Screening 10/09/2024 COVID-19 Vaccine (7 - Moderna risk season) 2025 07/19/2024, 10/05/2023, 01/03/2023, Additional history exists Influenza Vaccine (#1) 2025 , 11/29/2023, 06/27/2022, Additional history exists Diabetes: Blood Sugar Control Test (HGBA1C) 11/21/2025 05/21/2025, 02/11/2025, 05/14/2024, Additional history exists Diabetes: Annual Urine Albumin-Creatinine Ratio (uACR) 02/11/2026 02/11/2025, 06/05/2024 Diabetes: Annual GFR (Glomerular Filtration Rate) 06/16/2026 06/16/2025, 02/11/2025, 06/05/2024, Additional history exists Hypertension/CHF/CAD Annual BMP Blood Test 06/16/2026 06/16/2025, 02/11/2025, 06/05/2024, Additional history exists Cholesterol Screening (Lipid Panel) 02/11/2030 02/11/2025, 06/05/2024, 05/14/2024 DTaP,Tdap,and Td Vaccines (8 - [...] this topic Varicella Vaccines Completed 01/25/2010, 12/30/1999 HIV Screening Completed 06/16/2025 Hepatitis C Screening Completed 06/16/2025, 025 HPV Vaccines Aged Out No longer eligi ble based on patient's age to complete this topic Hepatitis A Vaccines Aged Out No long er eligible based on patient's age to complete this topic Meningococcal B Vaccine Aged Out No l onger eligible based on patient's age to complete this topic RSV Immunization Patients Under 20 months Aged Out No longer eligible based on patient's age to complete this topic Procedures Procedure Name Priority Date/Time Associated Diagnosis Comments BASIC METABOLIC PANEL Routine 06/16/2025 9:06 AM EDT Routine general medical examination at a health care facility HEPATITIS PANEL, ACUTE WITH REFLEX TO CONFIRMATION Routine 06/16/2025 9:06 AM EDT Routine general medical examination at a [facility] care facility HIV 1, 2 ANTIBODY, P24 ANTIGEN WITH REFLEX TO DIFFERENTIATION Routine 06/16/2025 9:06 AM EDT Routine general medical examination at a [facility] facility TREPONEMA PALLIDUM ANTIBODY WITH REFLEX TO RPR AND PARTICLE AGGLUTINATION Routine 06/16/2025 9:06 AM EDT Routine general medical examination at a [facility] care facility CHLAMYDIA TRACHOMATIS AND NEISSERIA GONORRHOEAE PCR Routine 06/16/2025 9:06 AM EDT Routine general medical examination at a [facility] care facility HEMOGLOBIN A1C Routine 05/21/2025 3:37 PM EDT Type 2 diabetes mellitus without complication, with long-term current use of insulin ([facility] V24, [facility] V28) MICROALBUMIN CREATININE URINE RATIO Routine 02/11/2025 10:38 AM EDT Type 2 diabetes mellitus without complication, unspecified whether terminal make up operator insulin use ([facility] V24, [facility] V28) LIPID PANEL WITH REFLEX TO DIRECT LDL Routine 02/11/2025 10:27 AM EDT Type 2 diabetes mellitus without complication, unspecified whether senior care insulin use ([facility] V24, [facility] V28) from Last 3 Months or Most Recently Relevant to Health Maintenance Results * HIV 1,2 antibody, p24 antigen with reflex to differentiation (06/16/2025 9:06 AM EDT) HIV Combo AB/AG Negative Negative LAB CHEMISTRY METHOD 06/16/2025 4:53 PM EDT [facility] Blood Venous blood specimen / Unknown Venipuncture / Unknown 06/16/2025 9:06 AM EDT 06/16/2025 9:06 AM EDT Narrative [facility] - 06/16/2025 4:53 PM EDT This assay is a 4th generation assay allowing for earlier detection of HIV infection by detecting the presence of the HIV-1 p24 antigen as well as the traditional antibodies to HIV type 1 (including group O) and type 2. Use of a 4th generation assay is the current CDC recommendation for HIV screening. Timothy Hernandez MD LAB BLOOD ORDERABLES Martita l Result Performing Organization Address [facility]/ZIP Co de Phone Number [facility] [address] [place] [address], * Treponema pallidum antibody with reflex to RPR and particle agglutination (06/16/2025 9:06 AM EDT) [facility] T. Pallidum Antibodies Negative Negative LAB CHEMISTRY METHOD 06/16/2025 4:24 PM EDT [facility] Blood Venous blood specimen / Unknown Venipuncture / Unknown 06/16/2025 9:06 AM EDT 06/16/2025 9:06 AM EDT Timothy Hernandez MD LAB BLOOD ORDERABLES Martita l Result Performing Organization Address [facility]/ZIP Co de Phone Number [facility] [address] [place] [address], * Hepatitis panel, acute with reflex to confirmation (06/16/2025 9:06 AM EDT) [facility] Hepatitis B Surface Ag Negative Negative LAB CHEMISTRY METHOD 06/16/2025 6:06 PM EDT [facility] Hepatitis A Antibody IgM Negative Negative LAB CHEMISTRY METHOD 06/16/2025 6:06 PM EDT [facility] Hep B Core IgM Negative Negative LAB CHEMISTRY METHOD 06/16/2025 6:06 PM EDT [facility] Hepatitis C Antibody Negative Negative LAB CHEMISTRY METHOD 06/16/2025 6:06 PM EDT [facility] Blood Venous blood specimen / Unknown Venipuncture / Unknown 06/16/2025 9:06 AM EDT 06/16/2025 9:06 AM EDT Timothy Hernandez MD LAB BLOOD ORDERABLES Martita l Result Performing Organization Address [facility]/ZIP Co de Phone Number [facility] [address] [place] [address], [place] [phone] * Chlamydia trachomatis and Neisseria gonorrhoeae molecular study (06/16/2025 9:06 AM EDT) Neisseria gonorrhoeae PCR Negative Negative LAB MOLECULAR DIAGNOSTICS METHOD 06/16/2025 4:49 PM EDT [facility] Chlamydia trachomatis PCR Negative Negative LAB MOLECULAR DIAGNOSTICS METHOD 06/16/2025 4:49 PM EDT [facility] Urine Urine specimen obtained by clean catch procedure / Unknown Non-blood Collection / Unknown 06/16/2025 9:06 AM EDT 06/16/2025 9:06 AM EDT Timothy Hernandez MD LAB MICROBIOLOGY - GENERA L ORDERABLES Final Result [facility] [address] [place] [address], [place] [phone] * (ABNORMAL) Basic metabolic panel (06/16/2025 9:06 AM EDT) Sodium 139 133 - 145 mmol/L LAB CHEMISTRY METHOD [facility]/16[facility]2025 [facility] Potassium 4.3 3.5 - 5.5 mmol/L LAB CHEMISTRY METHOD 06/16/2025 2:[address] [facility] Chloride 105 96 - 110 mmol/L LAB CHEMISTRY METHOD 06/16/2025 2:[address] [facility] CO2 26 21 - 32 mmol/L LAB CHEMISTRY METHOD 06/16/2025 2:[address] [facility] Anion Gap 8 3 - 11 LAB CHEMISTRY METHOD 06/16/2025 2:[address] [facility] Glucose 196(H) 70 - 100 mg/dL LAB CHEMISTRY METHOD 06/16/2025 2:[address] [facility] BUN 9 5 - 25 mg/dL LAB CHEMISTRY METHOD 06/16/2025 2:[address] [facility] Creatinine 0.82 0.70 - 1.30 mg/dL LAB CHEMISTRY METHOD 06/16/2025 2:[address] [facility] eGFR 118 >=60 mL/min/1. 73m2 LAB CHEMISTRY METHOD 06/16/2025 2:[address] [facility] Comment:Calculation based on the Chronic Kidney Disease Epidemiology Collaboration (CKD-EPI) equation refit without adjustment for race. BUN/Creatinine Ratio 11.0 LAB CHEMISTRY METHOD 06/16/2025 2:[address] [facility] Calcium 9.1 8.5 - 10.5 mg/dL LAB CHEMISTRY METHOD 06/16/2025 2:[address] [facility] Blood Venous blood specimen / Unknown Venipuncture / Unknown 06/16/2025 9:06 AM EDT 06/16/2025 9:06 AM EDT us Timothy Hernandez MD LAB BLOOD ORDERABLES Martita zabala Result [facility] [address] [place] [address], * (ABNORMAL) Hemoglobin A1c (05/21/2025 3:37 PM EDT) Hemoglobin A1C 7.3(H) <6.5 % LAB CHEMISTRY METHOD 05/21/2025 8:42 PM EDT [facility] Mean Bld Glu Estim. 163 mg/dL LAB CHEMISTRY METHOD 05/21/2025 8:42 PM EDT [facility] Blood Venous blood specimen / Unknown Venipuncture / Unknown 05/21/2025 3:37 PM EDT 05/21/2025 3:37 PM EDT Amy HOUSE LAB BLOOD ORDERABLES Final Result Performing Organization Address [facility]/ZIP Co de Phone Number [facility] [address] [place] [address], * (ABNORMAL) Microalbumin creatinine urine ratio (02/11/2025 10:38 AM EDT) Creatinine, Urine 203.0 mg/dL LAB CHEMISTRY METHOD 02/11/2025 1:27 PM EDT [facility] Microalb, Ur 68.9(H) 0.0 - 29.0 mg/L LAB CHEMISTRY METHOD 02/11/2025 1:27 PM EDT [facility] Microalb/Crea t Ratio 34(H) <30 mg/g creat LAB CHEMISTRY METHOD 02/11/2025 1:27 PM EDT [facility] Urine Urine specimen from urethra / Unknown Non-blood Collection / Unknown 02/11/2025 10:38 AM EDT 02/11/2025 10:53 AM EDT us Amy HOUSE LAB URINE ORDERABLES Final Result Performing Organization Address City/[facility]/ZIP Co de Phone Number [facility] [address] [place] [address], [place] [phone] * (ABNORMAL) Lipid panel with reflex to direct LDL (02/11/2025 10:27 AM EDT) Cholesterol 171 0 - 200 mg/dL LAB CHEMISTRY METHOD 02/11/2025 11:[address] [facility] Triglycerides 180(H) 0 - 150 mg/dL LAB CHEMISTRY METHOD 02/11/2025 11:41 AM T [facility] HDL 38(L) >=40 mg/dL LAB CHEMISTRY METHOD 02/11/2025 11:[address] [facility] LDL Calculated 97 0 - 100 mg/dL LAB CHEMISTRY METHOD 02/11/2025 11:[address] [facility] VLDL Cholesterol Lav[place] 36 mg/dL LAB CHEMISTRY METHOD 02/11/2025 11:[address] [facility] Non HDL Chol. (LDL+VLDL) 133 <145 mg/dL LAB CHEMISTRY METHOD 02/11/2025 11:[address] [facility] Chol/HDL Ratio 4.5(H) 0.0 - 4.4 LAB CHEMISTRY METHOD 02/11/2025 11:[address] [facility] Blood Venous blood specimen / Unknown Venipuncture / Unknown 02/11/2025 10:27 AM EDT 02/11/2025 10:53 AM EDT Amy HOUSE LAB BLOOD ORDERABLES Final Result [facility] [address] [place] [address], [place] [phone] from Last 3 Months or Most Recently Relevant to Health Maintenance Insurance [employer] Care Teams Scrap Wheeler Relationship Specialty Start Date End Date Bela Uribe MD [address] [place] [address] PCP - General Internal Medicine 06/16/25
--- OUTSIDE RECORDS SUMMARY | 2025-06-23 18:08 | XMS_ITS ---
Author Name [facility] Organization Unknown Care Team Organization Name Specialty Phone Email Start Date End Da te [facility] Timothy Hernandez Primary Care 08/16/2022 05/27/2024
== END 2025-06-23 13:49 | disposition home or self-care (01) ==
LOC: HO.HSMS 13:04
PROVIDERS: PCP Internal Medicine; Visit Provider Nurse Practitioner Family
DX: G47.33 Obstructive sleep apnea (adult) (pediatric) (principal); F81.9 Developmental disorder of scholastic skills, unspecified; R09.81 Nasal congestion
CPT/HCPCS: 99214

== ENCOUNTER → 2025-06-23 13:04 | Outpatient (BNVA) | payer OTHER, SELFPAY | PROVIDERS: PCP Internal Medicine; Visit Provider Nurse Practitioner Family | DX: G47.33 Obstructive sleep apnea (adult) (pediatric) (principal); R09.81 Nasal congestion; Z99.89 Dependence on other enabling machines and devices; F81.9 Developmental disorder of scholastic skills, unspecified | CPT/HCPCS: 99212 ==